=== PATIENT | male | born 1965 | race Caucasian/White ===

== ENCOUNTER 2024-10-12 13:24 | Inpatient (IN) | payer MEDICAID, OTHER ==
[~2024-10-12] VITALS: Ht 188 cm; Wt 95.8 kg
[2024-10-12 15:10] VITALS: PULSE 92; RESP 20; O2SAT 94
[2024-10-12] MEDS: DexAMETHasone SOD PHOS 10MG/1ML VIAL INJ IM ONE (15:40)
--- NOTE | 2024-10-12 15:43 | DVH ---
EXAM: XR Chest, 1 View CLINICAL INDICATION: Shortness of breath TECHNIQUE: Frontal view of the chest. COMPARISON: None FINDINGS: LUNGS AND PLEURAL SPACES: See below. HEART: Cardiomegaly with pulmonary congestion and edema. Superimposed pneumonia cannot be excluded. MEDIASTINUM: Unremarkable. Normal mediastinal contour. BONES/JOINTS: Unremarkable. No acute fracture. OTHER FINDINGS: . . IMPRESSION: Cardiomegaly with pulmonary congestion and edema. Superimposed pneumonia cannot be excluded. HS:Y
[2024-10-12] MEDS: IPRATROPIUM BROM 0.5 MG/2.5ML INH SOL NEB ONE (16:01)
[2024-10-12] MEDS: ALBUTEROL SULF 2.5 MG/0.5ML(0.5%) NEB SOLN NEB ONE (16:02)
[2024-10-12 16:08] LABS: Urine Bacteria None Seen /hpf (None Seen)
[2024-10-12 16:08] LABS: Basophils # (auto) 0 10 ^3/uL (0-0.2); Basophils % (auto) 0.3 % (0.0-2.0); Eosinophils # (auto) 0 10 ^3/uL (0-0.8); Hematocrit 40.6 % (41.0-53.0); Hemoglobin 13.6 g/dL (13.5-17.5); Lymphocytes % (auto) 7.5 % (10.0-50.0); Mean Corpuscular Hemoglobin 30.4 pg (28.0-32.0); Mean Corpuscular Hgb Conc. 33.5 g/dL (32.0-36.0); Mean Corpuscular Volume 90.8 fL (80.0-100.0); Monocytes # (auto) 1.4 10 ^3/uL (0-1.3); Monocytes % (auto) 10.2 % (0.0-12.0); Neutrophils # (auto) 11.2 10 ^3/uL (1.6-8.6); Nucleated Red Blood Cells % 0.1 %; Platelet Count (auto) 139 10^3/uL (140-450); Red Blood Cells 4.48 10^6/uL (4.5-5.90); Red Cell Distribution Width 15.4 % (11.8-14.3); White Blood Cell 13.6 10^3/uL (4.4-10.8)
[2024-10-12 16:16] LABS: Chloride 100 mmol/L (98-107); Potassium 4.7 mmol/L (3.5-5.1)
[2024-10-12 16:17] LABS: Anion Gap 10 (5-15)
[2024-10-12 16:18] LABS: Calcium 10.3 mg/dL (8.7-10.4)
[2024-10-12 16:23] LABS: BUN/Creatinine Ratio 37.2 (10.0-20.0)
[2024-10-12 16:27] LABS: Urine Blood 1+ /uL (Negative); Urine Clarity Clear (Clear); Urine Color Yellow (Yellow); Urine Mucus FEW (None Seen); Urine Protein, UAD 1+ (Negative); Urine Specific Gravity 1.022 (1.001-1.035); Urine Squamous Epithelial Cell FEW /hpf (<5); Urine Urobilinogen Normal (Negative); Urine WBC 1 /hpf (0 - 3); Urine pH 5.5 (5.0-9.0)
[2024-10-12 16:34] LABS: Blood Urea Nitrogen 32 mg/dL (9-23); Carbon Dioxide 20 mmol/L (20-31); Glucose 123 mg/dL (74-106); Lipase 63 U/L (12-53); Sodium 130 mmol/L (136-145)
--- NOTE | 2024-10-12 17:28 | ED.PDOC ---
SOB-HPI HPI Comments 59Y M presents to ED for chief complaint SOB x1week with blood in sputum. Pt denies chest pain. Pt has decreased breath sounds of LLL and appears to be in overall poor health. Pt denies h/o emphysema and COPD. No other symptoms reported. Patient had an elevated temperature at arrival. Patient was hypotensive and saturating at 97% with some mild effort at arrival. Chief Complaint: Shortness of Breath Time Seen by MD: 14:20 Reviewed notes: Nurses Notes, Medications, Allergies Information Source: Patient Mode of Arrival: Ambulatory Severity: Moderate Timing: Weeks Duration: Since onset Context: At Rest PE Risk Factors: None History of: None Prehospital treatment: None Modifying Factors: Nothing Associated Signs and Symptoms: Other If cough with SOB: Productive, Bloody Past Medical History PAST MEDICAL HISTORY: Denies Surgical History: Denies all surgeries Family History Family History: Unknown Social History Smoker: Non-Smoker Alcohol: Denies ETOH Use Drugs: Denies Drug Use Lives In: Home Constitutional: reports: fever, weakness; denies: chills, diaphoresis, fatigue, malaise, sweats, others EENTM: denies: blurred vision, double vision, ear bleeding, ear discharge, ear drainage, ear pain, ear ringing, eye pain, eye redness, hearing loss, mouth pain, mouth swelling, nasal discharge, nose bleeding, nose congestion, nose pain, photophobia, tearing, throat pain, throat swelling, voice changes, others Respiratory: reports: cough, shortness of breath; denies: hemoptysis, orthopnea, SOB at rest, SOB with excertion, stridor, wheezing, others Cardiovascular: denies: chest pain, dizzy spells, diaphoresis, Dyspnea on exertion, edema, irregular heart beat, left arm pain, lightheadedness, p alpitations, PND, syncope, others Gastrointestinal: denies: abdomen distended, abdominal pain, blood streaked bowels, constipated, diarrhea, dysphagia, difficulty swallowing, hematemesis, melena, nausea, poor appetite, poor fluid intake, rectal bleeding, rectal pain, vomiting, others Genitourinary: denies: burning, dysuria, flank pain, frequency, hematuria, incontinence, penile discharge, penile sore, pain, testicle pain, testicle swelling, urgency, others Neurological: denies: dizziness, fainting, headache, left sided numbness, left sided weakness, numbness, paresthesia, pre-existing deficit, right sided numbness, right sided weakness, seizure, speech problems, tingling, tremors, weakness, others Musculoskeletal: denies: back pain, gout, joint pain, joint swelling, muscle pain, muscle stiffness, neck pain, others Integumetry: denies: bruises, change in color, change in hair/nails, dryness, laceration, lesions, lumps, rash, wounds, others Allergic/Immunocompromised: denies: Difficulty Healing, Frequent Infections, Hives, Itching, others Hematologic/Lymphatic: denies: anemia, blood clots, easy bleeding, easy b ruising, swollen glands, others Endocrine: denies: excessive hunger, excessive sweating, excessive thirst, excessive urination, flushing, intolerance to cold, intolerance to heat, unexplained weight gain, unexplained weight loss, others Psychiatric: denies: anxiety, bipolar disorder, depression, hopeless, panic disorder, schizophrenia, sleepless, suicidal, others All Other Systems: Reviewed and Negative Physical Exam Exam Comments Patient appears to be in poor overall health. General Appearance: Moderate Distress (Moderate distress due to shortness a breath and chest congestion concerns.), Normal HEENT: Normal ENT Inspection, Pharynx Normal, TMs Normal Neck: Full Range of Motion, Non-Tender, Normal, Normal Inspection Respiratory: Chest Non-Tender, Decreased Breath Sounds (LLL) Cardiovascular: No Edema, No JVD, No Murmur, No Gallop, Normal Peripheral Pulses, Regular Rate/Rhythm Breast Exam: Deferred Gastrointestinal: No Organomegaly, Non Tender, No Pulsatile Mass, Normal Bowel Sounds, Soft Genitalia: Deferred Pelvic: Deferred Rectal: Deferred Extremities: No calf tenderness, Normal capillary refill, Normal inspection, Normal range of motion, Non-tender, No pedal edema Musculoskeletal : Apperance: Normal Neurologic: Alert, No Motor Deficits, Normal Affect, Normal Mood, No Sensory Deficits Cerebellar Function: Normal Reflexes: Normal Skin: Dry, Normal Color, Warm Lymphatic: No Adenopathy Was a procedure done? Was a procedure done?: No Differential Dx Differential Diagnosis: Asthma, Bronchitis, COPD, Pneumonia, Respiratory Distress, URI, Other (Sepsis, CHF exacerbation, electrolyte abnormality) X-Ray, Labs, Meds, VS Vital Signs Date Time Temp Pulse Resp B/P (MAP) Pulse Ox O2 Delivery O2 Flow Rate FiO2 10/12/24 16:02 18 95 Room Air* 0 21 10/12/24 15:40 98.7 93 16 103/68 (80) 95 98.7 10/12/24 15:40 93 16 95 Room Air 10/12/24 15:10 92 20 94 Room Air* 0 21 10/12/24 15:04 9 18 100/66 (77) 94 10/12/24 13:40 100.1 96 20 93/65 (74) 97 10/12/24 13:40 20 Room Air* 0 21 Lab Test 10/12/24 15:47 10/12/24 15:39 Range/Units White Blood Count 13.6 H 4.4-10.8 10^3/uL Red Blood Count 4.48 L 4.5-5.90 10^6/uL Hemoglobin 13.6 13.5-17.5 g/dL Hematocrit 40.6 L 41.0-53.0 % Mean Corpuscular Volume 90.8 80.0-100.0 fL Mean Corpuscular Hemoglobin 30.4 28.0-32.0 pg Mean Corpuscular Hemoglobin Concent 33.5 32.0-36.0 g/dL Red Cell Distribution Width 15.4 H 11.8-14.3 % Platelet Count 139 L 140-450 10^3/uL Mean Platelet Volume 9.0 6.9-10.8 fL Neutrophils (%) (Auto) 82.0 H 37.0-80.0 % Lymphocytes (%) (Auto) 7.5 L 10.0-50.0 % Monocytes (%) (Auto) 10.2 0.0-12.0 % Eosinophils (%) (Auto) 0.0 0.0-7.0 % Basophils (%) (Auto) 0.3 0.0-2.0 % Neutrophils # (Auto) 11.2 H 1.6-8.6 10 ^3/uL Lymphocytes # (Auto) 1.0 0.4-5.4 10 ^3/uL Monocytes # (Auto) 1.4 H 0-1.3 10 ^3/uL Eosinophils # (Auto) 0 0-0.8 10 ^3/uL Basophils # (Auto) 0 0-0.2 10 ^3/uL Nucleated Red Blood Cells 0.1 % Sodium Level 130 L 136-145 mmol/L Potassium Level 4.7 3.5-5.1 mmol/L Chloride Level 100 98-107 mmol/L Carbon Dioxide Level 20 20-31 mmol/L Anion Gap 10 5-15 Blood Urea Nitrogen 32 H 9-23 mg/dL Creatinine 0.86 0.700-1.30 mg/dL Glomerular Filtration Rate Calc 99 >90 mL/min BUN/Creatinine Ratio 37.2 H 10.0-20.0 Serum Glucose 123 H 74-106 mg/dL Calcium Level 10.3 8.7-10.4 mg/dL B-Type Natriuretic Peptide 1909.28 0-100 pg/mL Lipase 63 H 12-53 U/L Urine Color Yellow Yellow Urine Clarity Clear Clear Urine pH 5.5 5.0-9.0 Urine Specific [place] 1.022 1.001-1.035 Urine Protein 1+ H Negative Urine Ketones Trace Negative Urine Blood 1+ H Negative /uL Urine Nitrite Negative Negative Urine Bilirubin Negative Negative Urine Urobilinogen Normal Negative mg/dL Urine Leukocyte Esterase Negative Negative /uL Urine RBC 1 0 - 3 /hpf Urine WBC 1 0 - 3 /hpf Urine Squamous Epithelial Cells Few <5 /hpf Urine Bacteria None seen None Seen /hpf Urine Mucus Few None Seen Urine Glucose Normal Normal mg/dL Current Medications Medications (Trade) Dose Ordered Sig/Anthony Route Start Time Stop Time Status Last Admin Albuterol (Ventolin Medneb) 2.5 mg ONCE ONCE NEB 10/12/24 15:30 10/12/24 15:31 DC 10/12/24 16:02 Ipratropium [place] (Atrovent Medneb) 0.5 mg ONCE ONCE NEB 10/12/24 15:30 10/12/24 15:31 DC 10/12/24 16:01 Dexamethasone Sodium Phosphate (Decadron Injection) 10 mg ONCE ONCE IM 10/12/24 15:30 10/12/24 15:31 DC 10/12/24 15:[address] [address] Ph: [phone] DIAGNOSTIC IMAGING Diagnostic Imaging Report : [id number] Signed PATIENT: RADHA HESS ACCT: [id number] UNIT: [id number] : 1965 LOC: ER ROOM / BED: / AGE / SEX: 59 / M ADM STATUS: REG ER SERVICE 1521 ORDERING PHYSICIAN: PATRICIA KHAN PAC PROCEDURE(s): CXRP - CHEST PORTABLE REASON: Shortness of breath ORDER NUMBER(s): [id number], ACCESSION NUMBER(s): [id number] EXAM: XR Chest, 1 View CLINICAL INDICATION: Shortness of breath TECHNIQUE: Frontal view of the chest. COMPARISON: None FINDINGS: LUNGS AND PLEURAL SPACES: See below. HEART: Cardiomegaly with pulmonary congestion and edema. Superimposed pneumonia cannot be excluded. MEDIASTINUM: Unremarkable. Normal mediastinal contour. BONES/JOINTS: Unremarkable. No acute fracture. OTHER FINDINGS: . . IMPRESSION: Cardiomegaly with pulmonary congestion and edema. Superimposed pneumonia cannot be excluded. HS:Y ATED BY: PATRICIA RIDER MD DICTATED DATE/TIME: 10/12/241540 SIGNED BY: PATRICIA RIDER MD SIGNED DATE/TIME: 10/12/241540 CC: X-Ray, Labs, Meds, VS Comment All studies performed the ED were reviewed by me personally. Laboratories studies revealed a mild leukocytosis, thrombocytopenia, hyponatremia, elevated lipase as well as a significant elevated BNP indicative of a probable acute CHF exacerbation. Imaging studies of the chest revealed cardiomegaly with pulmonary congestion and edema possible superimposed pneumonia. Patient will be admitted for IV antibiotics to address the pneumonia concerns as well as Lasix to reduce the pulmonary vascular congestion. Time of 1ST Reevaluation: 17:38 Reevaluation 1ST: Improved Consultation: PCP, Cardiology Patient Education/Counseling: Diagnosis, Treatment Family Education/Counseling: Diagnosis, Treatment, No Family Present Departure 1 Departure Time of Disposition: 17:39 Impression: Primary Impression: Pneumonia Additional Impressions: Acute exacerbation of CHF (congestive heart failure) Thrombocytopenia Hyponatremia Elevated lipase Disposition: ADMITTED INPATIENT Condition: Stable Discharged With: Self, Friend Critical Care Note Critical Care Time?: No Stability Stability form required: No Heart Score Heart Score: Heart Score Response (Comments) Value History N/A 0 EKG N/A 0 Age N/A 0 Risk Factors N/A 0 Troponin N/A 0 Total 0 I personally scribed for PATRICIA KHAN PAC ([email or web address]) on 10/12/24 at 17:28. Electronically submitted by Chinyere Marmolejo ([facility]). I personally scribed for PATRICIA KHAN [facility] on 10/12/24 at 17:29. Electronically [facility] by [facility] ([facility] PATRICIA KHAN PAC Oct 12, 2024 17:28
[2024-10-12] MEDS ORDERED: FUROSEMIDE 100 MG/10ML VIAL IV ONE (17:45)
[2024-10-12] MEDS: SODIUM CHLORIDE 0.9% 1,000 ML IV ONE (18:07)
[2024-10-12] MEDS: AZITHROMYCIN 500MG/ 250ML 250 ML IV ONE (18:21)
[2024-10-12] MEDS: FUROSEMIDE 40 MG/4 ML VIAL IV ONE (18:37)
[2024-10-12] MEDS ORDERED: MELATONIN 5 MG TAB PO PRN (20:00)
[2024-10-12] MEDS ORDERED: MORPHINE SULFATE INJ 2 MG/ml SYRG IV PRN (20:00)
[2024-10-12] MEDS ORDERED: ONDANSETRON HCL 4 MG/2 ML VIAL IV PRN (20:00)
[2024-10-12] MEDS ORDERED: NITROGLYCERIN 0.4 MG SL TAB SL PRN (20:00)
[2024-10-12 20:13] VITALS: PULSE 79; RESP 16; O2SAT 94
[2024-10-12] MEDS ORDERED: SENNA 8.6 MG TAB PO PRN (20:15)
[2024-10-12] MEDS ORDERED: ALBUMIN 25% 100 ML IV ONE (20:15)
[2024-10-12 20:23] VITALS: BP 107/68; PULSE 89; RESP 20; O2SAT 94
[2024-10-12] MEDS: ALBUMIN 25% 50 ML IV ONE (20:41)
[2024-10-12 21:55] LABS: COVID19 ANTIGEN SOFIA FIA NEGATIVE (NEGATIVE); Rapid Influenza A Negative (Negative); Rapid Influenza B Negative (Negative)
[2024-10-12] MEDS: FAMOTIDINE 20 MG TAB PO SCH (22:43)
[2024-10-12] MEDS: DOXYCYCLINE 100MG/100ML 100 ML IV SCH (22:44)
[2024-10-13] VITALS (19 sets, daily range): BP systolic 89–105; BP diastolic 59–77; PULSE 74–105; RESP 16–20; TEMP 97.5–97.9; O2SAT 94–100
--- NOTE | 2024-10-13 00:19 | DVHHP2 ---
Admitting Diagnosis: New onset CHF, Pneumonia ? History of Present Illness History Source: Patient Exam Limitations: No limitations HPI Mr. Jorge Weinstein is a 59 yo male with no reported past medical history who presents with a chief complaint of shortness of breath with frothy bloody sputum. Patient was found to have BNP 1,809 and CXR resulted Cardiomegaly with pulmonary congestion and edema. Superimposed pneumonia cannot be excluded. Patient reports he has a past history of childhood aortic valve stenosis however has not seen a cardiologists. Patient reports chest pain when he coughs. Patient denies fevers, chills, nausea, vomiting. Patient denies any history of hypertension, CHF, COPD. Past Medical History Cardiac: No pertinent Hx Pulmonary: No pertinent Hx Central Nervous System: No pertinent Hx GI: No pertinent Hx Hemotology/Oncology: No pertinent Hx Hepatobiliary: No pertinent Hx Psychiatric: No pertinent Hx Musculoskeletal: No pertinent Hx Rheumotologic: No pertinent Hx Infectious Disease: No peritnent Hx ENT: No pertinent Hx Renal/: No pertinent Hx Endocrine: No pertinent Hx Dermatology: No pertinent Hx Others childhood diagnosis of aortic valve stenosis Smoker: No Hx (Negative) Alocohol: None Drugs: None Domestic Violence: Neg Review of Systems Constitutional: No symptom reported Ears, Nose, & Throat: No symptom reported Eyes: No symptom reported Pulmonary/Respiratory: Dyspnea, Cough, Pleuritic Chest Pain Cardiovascular: No symptom reported Gastrointestinal: No symptom reported Genitourinary: No symptom reported Musculoskeletal: No symptom reported Skin: No symptom reported Psychiatric: No symptom reported Endocrine: No symptom reported Hemotologic/Lymphatic: No symptom reported H&P Exam Vital Signs Vital Signs Date Time Temp Pulse Resp B/P (MAP) Pulse Ox O2 Delivery O2 Flow Rate FiO2 10/12/24 22:18 98.1 85 12 102/67 (79) 96 98.1 10/12/24 20:23 0.0 21 10/12/24 20:13 Room Air* General Appeara: Well developed, Well nourished, Normal Appearance Head Exam: Normal inspection Neck Exam: Normal inspection, Non-tender, Normal alignment Eye Exam: bilateral eye Normal inspection, bilateral eye PERRL, bilateral eye EOMI Ear Exam: bilateral ear Auricle normal, bilateral ear Canal normal Nasal Exam: Normal inspection Mouth: Normal Inspection Pulmonary/Respiratory: Normal inspection, Normal breath sounds, Chest non- tender, Lungs clear Cardiovascular/Chest: Normal inspection, Regular rate, Normal Rhythm Peripheral Pulses: 2+ dorsalis pedis (R), 2+ dorsalis pedis (L), 2+ Radial (R), 2+ Radial (L) Abdominal Exam: Normal bowel sounds, Soft, No tenderness Rectal Exam: Deferred Back Exam: Normal inspection Male Genital Exam: Not done Tendon/ Neuro: Normal sensation, Normal motor function [employer] Exam: Normal hearing, Normal speech, PERRL Motor/Sensory: Normal sensory function, Normal motor function Neuro/Mental St: Alert, Oriented Appearance: Appropriate appearance, Appropriate insight Eye contact/ Speech: Cooperative, Good eye contact, Normal speech Thoughts/Psych: Normal thought pattern Skin Exam: Normal inspection, Normal color, Warm/dry Labs/Xrays Labs Test 10/12/24 20:52 10/12/24 20:10 10/12/24 15:47 10/12/24 15:39 Range/Units Influenza Type A Antigen Negative Negative Influenza Type B Antigen Negative Negative SARS-CoV-2 Antigen (Rapid) Negative NEGATIVE Magnesium Level 2.1 1.6-2.6 mg/dL Troponin I High Sensitivity 41 </=54 ng/L White Blood Count 13.6 H 4.4-10.8 10^3/uL Red Blood Count 4.48 L 4.5-5.90 10^6/uL Hemoglobin 13.6 13.5-17.5 g/dL Hematocrit 40.6 L 41.0-53.0 % Mean Corpuscular Volume 90.8 80.0-100.0 fL Mean Corpuscular Hemoglobin 30.4 28.0-32.0 pg Mean Corpuscular Hemoglobin Concent 33.5 32.0-36.0 g/dL Red Cell Distribution Width 15.4 H 11.8-14.3 % Platelet Count 139 L 140-450 10^3/uL Mean Platelet Volume 9.0 6.9-10.8 fL Neutrophils (%) (Auto) 82.0 H 37.0-80.0 % Lymphocytes (%) (Auto) 7.5 L 10.0-50.0 % Monocytes (%) (Auto) 10.2 0.0-12.0 % Eosinophils (%) (Auto) 0.0 0.0-7.0 % Basophils (%) (Auto) 0.3 0.0-2.0 % Neutrophils # (Auto) 11.2 H 1.6-8.6 10 ^3/uL Lymphocytes # (Auto) 1.0 0.4-5.4 10 ^3/uL Monocytes # (Auto) 1.4 H 0-1.3 10 ^3/uL Eosinophils # (Auto) 0 0-0.8 10 ^3/uL Basophils # (Auto) 0 0-0.2 10 ^3/uL Nucleated Red Blood Cells 0.1 % Sodium Level 130 L 136-145 mmol/L Potassium Level 4.7 3.5-5.1 mmol/L Chloride Level 100 98-107 mmol/L Carbon Dioxide Level 20 20-31 mmol/L Anion Gap 10 5-15 Blood Urea Nitrogen 32 H 9-23 mg/dL Creatinine 0.86 0.700-1.30 mg/dL Glomerular Filtration Rate Calc 99 >90 mL/min BUN/Creatinine Ratio 37.2 H 10.0-20.0 Serum Glucose 123 H 74-106 mg/dL Calcium Level 10.3 8.7-10.4 mg/dL B-Type Natriuretic Peptide 1909.28 0-100 pg/mL Lipase 63 H 12-53 U/L Urine Color Yellow Yellow Urine Clarity Clear Clear Urine pH 5.5 5.0-9.0 Urine Specific [place] 1.022 1.001-1.035 Urine Protein 1+ H Negative Urine Ketones Trace Negative Urine Blood 1+ H Negative /uL Urine Nitrite Negative Negative Urine Bilirubin Negative Negative Urine Urobilinogen Normal Negative mg/dL Urine Leukocyte Esterase Negative Negative /uL Urine RBC 1 0 - 3 /hpf Urine WBC 1 0 - 3 /hpf Urine Squamous Epithelial Cells Few <5 /hpf Urine Bacteria None seen None Seen /hpf Urine Mucus Few None Seen Urine Glucose Normal Normal mg/dL Assessment/Plan Problem List: (1) Acute exacerbation of CHF (congestive heart failure) (2) Pneumonia (3) Thrombocytopenia Plan 59 yo male with no reported past medical history presents to the hospital with shortness of breath , cough with blood in sputum. Patient found to have 1. acute CHF exacerbation , new onset 2. Pneumonia ? 3. Acute hyponatremia 4. Thrombocytopenia PLAN: Admit Telemetry unit Cardiology consultation, 2D echocardiogram, Fluid Restriction, Strict I&O's IV diuresis Furosemide Empiric IV antibiotic Duo Neb Treatments Monitor CBC, BMP Incentive spirometry Discussed all above with patient who verbalizes agreement and understanding of care plan. All questions were answered. Discussed assessment and care plan with supervising MD. Plan discussed with: Patient, Other Code Visit Code Visit Total Time (mins): 45 Additional Comments Additional Comments Additional Comments 59-year-old male with a known significant past medical history initially admitted to the hospital with the increasing shortness a breath and frothy pinkish sputum found to have 1. Acute congestive heart failure exacerbation unspecified 2. Shortness of breath 3. Bilateral leg edema 4. Mild leukocytosis 5. Thrombocytopenia 6. Hyponatremia -IV diuretics, 2D echo cardiology consultation -strict I&Os WANDA CORREIA Oct 13, 2024 00:19 MALLORY LIGHT MD Oct 13, 2024 16:58
[2024-10-13] MEDS: IPRATROPIUM BROM 0.5 MG/2.5ML INH SOL NEB SCH (00:38)
[2024-10-13] MEDS: FUROSEMIDE 40 MG/4 ML VIAL IV SCH (05:34)
[2024-10-13 09:30] LABS: Basophils # (auto) 0.2 10 ^3/uL (0-0.2); Basophils % (auto) 1.7 % (0.0-2.0); Eosinophils # (auto) 0 10 ^3/uL (0-0.8); Hematocrit 38.2 % (41.0-53.0); Hemoglobin 12.7 g/dL (13.5-17.5); Lymphocytes # (auto) 0.5 10 ^3/uL (0.4-5.4); Lymphocytes % (auto) 3.4 % (10.0-50.0); Mean Corpuscular Hgb Conc. 33.3 g/dL (32.0-36.0); Monocytes # (auto) 0.9 10 ^3/uL (0-1.3); Monocytes % (auto) 6.6 % (0.0-12.0); Neutrophils # (auto) 12.3 10 ^3/uL (1.6-8.6); Neutrophils % (auto) 88.3 % (37.0-80.0); Nucleated Red Blood Cells % 0.1 %; Platelet Count (auto) 137 10^3/uL (140-450); Red Blood Cells 4.24 10^6/uL (4.5-5.90); Red Cell Distribution Width 15.5 % (11.8-14.3); White Blood Cell 13.9 10^3/uL (4.4-10.8)
[2024-10-13] MEDS: ENOXAPARIN SOD 40 MG/0.4 ML SYRINGE SC SCH (09:38)
[2024-10-13 09:40] LABS: Chloride 99 mmol/L (98-107); Potassium 4.6 mmol/L (3.5-5.1)
[2024-10-13 09:41] LABS: Anion Gap 8 (5-15); Calcium 9.9 mg/dL (8.7-10.4); Carbon Dioxide 21 mmol/L (20-31)
[2024-10-13 09:46] LABS: BUN/Creatinine Ratio 34.5 (10.0-20.0)
[2024-10-13 10:31] LABS: Blood Urea Nitrogen 30 mg/dL (9-23); Glucose 243 mg/dL (74-106); Sodium 128 mmol/L (136-145)
[2024-10-13] MEDS: HYDROcodone-ACET 5/325MG TAB PO PRN (21:40)
[2024-10-14] VITALS (18 sets, daily range): BP systolic 90–100; BP diastolic 59–70; PULSE 80–95; RESP 16–21; TEMP 97.4–98.4; O2SAT 93–100
[2024-10-14] MEDS: ACETAMINOPHEN 325 MG TAB PO PRN (05:02)
[2024-10-14 06:04] LABS: Basophils # (auto) 0 10 ^3/uL (0-0.2); Basophils % (auto) 0.1 % (0.0-2.0); Eosinophils # (auto) 0 10 ^3/uL (0-0.8); Hematocrit 40.8 % (41.0-53.0); Hemoglobin 13.5 g/dL (13.5-17.5); Lymphocytes # (auto) 0.9 10 ^3/uL (0.4-5.4); Lymphocytes % (auto) 4.8 % (10.0-50.0); Mean Corpuscular Hemoglobin 29.9 pg (28.0-32.0); Mean Corpuscular Hgb Conc. 33.1 g/dL (32.0-36.0); Mean Corpuscular Volume 90.3 fL (80.0-100.0); Monocytes # (auto) 1.3 10 ^3/uL (0-1.3); Monocytes % (auto) 7.2 % (0.0-12.0); Neutrophils # (auto) 15.7 10 ^3/uL (1.6-8.6); Neutrophils % (auto) 87.9 % (37.0-80.0); Nucleated Red Blood Cells % 0.2 %; Platelet Count (auto) 158 10^3/uL (140-450); Red Blood Cells 4.52 10^6/uL (4.5-5.90); Red Cell Distribution Width 16.1 % (11.8-14.3); White Blood Cell 17.9 10^3/uL (4.4-10.8)
[2024-10-14 06:17] LABS: Chloride 98 mmol/L (98-107); Potassium 4.4 mmol/L (3.5-5.1)
[2024-10-14 06:18] LABS: Anion Gap 7 (5-15); Carbon Dioxide 27 mmol/L (20-31)
[2024-10-14 06:40] LABS: BUN/Creatinine Ratio 31.9 (10.0-20.0); Blood Urea Nitrogen 30 mg/dL (9-23); Calcium 10.9 mg/dL (8.7-10.4); Glucose 164 mg/dL (74-106); Sodium 132 mmol/L (136-145)
--- NOTE | 2024-10-14 15:10 | DVHPN2 ---
Subjective Overnight events noted. Patient is still complaining of shortness of breath on minimal exertion. Reviewed: Care Plan Changes from previous H/P or p: No Changes Objective Vitals Vital Signs Date Time Temp Pulse Resp B/P (MAP) Pulse Ox O2 Delivery O2 Flow Rate FiO2 10/14/24 13:00 98.4 87 21 97/64 (75) 96 98.4 10/14/24 12:02 Room Air 0.0 10/14/24 12:02 21 Intake/Output Intake and Output 10/14/24 07:00 Intake Total 1184 ml Output Total 300 ml Balance 884 ml Intake Oral 984 ml IV Total 200 ml Output Urine Total 300 ml # Voids 3 # Bowel Movements 3 Exam HEENT pupils are reactive Neck is supple CV is S1-S2 regular rate and rhythm Respiratory diminished breath sounds bilateral lung bases GI positive bowel sounds Extremity 1+ pitting edema 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 Medications Current Medications Medications Dose Ordered Sig/Anthony Route Start Time Stop Time Status Last Admin Dose Admin Nitroglycerin 0.4 mg Q5MINP PRN SL 10/12/24 20:00 Morphine Sulfate 2 mg Q30M PRN IV 10/12/24 20:00 Ondansetron HCl 4 mg Q6HPRN PRN IV 10/12/24 20:00 Melatonin 5 mg ONCE@2200 PRN PO 10/12/24 20:00 Enoxaparin Sodium 40 mg DAILY SC 10/13/24 10:00 10/14/24 11:42 40 MG Famotidine 20 mg BID PO 10/12/24 22:00 10/14/24 11:42 20 MG Acetaminophen 650 mg Q6HPRN PRN PO 10/12/24 20:00 10/14/24 05:02 650 MG Acetaminophen/ Hydrocodone Bitart 1 tab Q6HPRN PRN PO 10/12/24 20:00 10/13/24 21:40 1 TAB Doxycycline Hyclate 100 ml @ 50 mls/hr BID IV 10/12/24 22:00 10/14/24 11:41 50 MLS/HR Ipratropium [place] 0.5 mg Q6HR NEB 10/13/24 00:00 10/14/24 12:02 0.5 MG Furosemide 40 mg BIDD IV 10/13/24 06:00 10/14/24 06:17 40 MG Sennosides 8.6 mg BIDP PRN PO 10/12/24 20:15 Laboratory Results Laboratory Tests 10/14/24 05:00 Chemistry Test 10/14/24 05:00 Calcium Level 10.9 mg/dL (8.7-10.4) H Urinalysis Test 10/12/24 15:39 Urine Color Yellow (Yellow) Urine Clarity Clear (Clear) Urine pH 5.5 (5.0-9.0) Urine Specific [place] 1.022 (1.001-1.035) Urine Protein 1+ (Negative) H Urine Ketones Trace (Negative) Urine Blood 1+ /uL (Negative) H Urine Nitrite Negative (Negative) Urine Bilirubin Negative (Negative) Urine Urobilinogen Normal mg/dL (Negative) Urine Leukocyte Esterase Negative /uL (Negative) Urine RBC 1 /hpf (0 - 3) Urine WBC 1 /hpf (0 - 3) Urine Squamous Epithelial Cells Few /hpf (<5) Urine Bacteria None seen /hpf (None Seen) Urine Mucus Few (None Seen) Urine Glucose Normal mg/dL (Normal) Assessment/Plan Assessment/Plan 59-year-old male with a known significant past medical history initially admitted to the hospital with the increasing shortness a breath and frothy pinkish sputum found to have 1. Acute congestive heart failure exacerbation unspecified 2. Shortness of breath 3. Bilateral leg edema 4. Mild leukocytosis 5. Thrombocytopenia 6. Hyponatremia 7. Possible suspected pneumonia -continue IV diuretics, cough follow up 2D echo and cardiology consultation, add azithromycin -repeat labs CBC and BMP. Plan discussed with: Patient Date of Service: Oct 14, 2024 Billing Provider: MALLORY LIGHT MD Common Visit Codes: NOT BILLABLE MALLORY LIGHT MD Oct 14, 2024 15:10
[2024-10-14] MEDS: AZITHROMYCIN 500MG/ 250ML 250 ML IV ONE (16:33)
--- NOTE | 2024-10-14 18:27 | MEDREC ---
[facility] ASP Intervention Section I [facility] ASP Intervention: Duplication of therapy (PLEASE CONSIDER D/C DOXYCYCLINE AND ADDING CEFTRIAXONE TO AZITHROMYCIN FOR CAP) KAILEE HAMILTON PHARMACIST Oct 14, 2024 18:27
[2024-10-15] VITALS (13 sets, daily range): BP systolic 90–103; BP diastolic 63–72; PULSE 89–98; RESP 16–21; TEMP 97.8–99; O2SAT 92–100
--- NOTE | 2024-10-15 03:24 | DVHINCON2 ---
DATE OF CONSULTATION: 10/13/2024 REFERRING PHYSICIAN: . CONSULTING PHYSICIAN: Dr. Maldonado. INDICATION: Shortness of breath. HISTORY OF PRESENT ILLNESS: The patient is a 59-year-old male with history of valvular heart disease presented to the hospital with complaints of worsening shortness of breath and lower extremity edema. The patient is admitted with diagnosis of decompensated heart failure. Currently on IV Lasix with some improvement in symptoms. The patient states that it has been years since he has been to a physician. The patient was told that he has valvular heart disease, did not know the details. PAST MEDICAL HISTORY: Valvular heart disease. MEDICATIONS: Per med rec. ALLERGIES: No known drug allergies. PHYSICAL EXAMINATION: GENERAL: Alert and awake, in no form of cardiopulmonary distress. VITAL SIGNS: Blood pressure 96/69, pulse 80 per minute, saturation 92%. HEENT: No carotid bruits. No jugular venous distention. CHEST: Bilateral air entry. Scattered wheeze and rhonchi. CARDIOVASCULAR: Precordial and carotid pulses palpable. Normal S1, S2. There is a grade 3/6 crescendo-decrescendo murmur, best heard over the aortic area. EXTREMITIES: Bilateral edema. DIAGNOSTIC DATA: BNP is elevated at 1909. Sodium 128, potassium 4.6, creatinine 0.8. White count 13, hemoglobin 12, and platelet is 137. ASSESSMENT: * Decompensated heart failure. * Severe aortic stenosis by echo. * Cardiomyopathy, likely secondary to underlying valvular heart disease. * Hyponatremia. * Tobacco use. * Chronic obstructive pulmonary disease. RECOMMENDATIONS: * Continue cautious diuresis. * Restrict salt and fluid intake. * Monitor sodium closely. * We will review echo. * The patient would need assessment for TAVR as an outpatient, have advised the patient to follow up with his primary care and myself in 1-2 weeks upon discharge. * Continue telemetry monitoring. Thank you for allowing me to participate in the care of this patient. MD HOLDEN Jimenez/MALU/PATO TID: [id number] RECEIPT: [id number]
[2024-10-15 06:09] LABS: Basophils # (auto) 0 10 ^3/uL (0-0.2); Basophils % (auto) 0.1 % (0.0-2.0); Eosinophils # (auto) 0 10 ^3/uL (0-0.8); Hematocrit 36.6 % (41.0-53.0); Hemoglobin 12.2 g/dL (13.5-17.5); Lymphocytes # (auto) 0.8 10 ^3/uL (0.4-5.4); Mean Corpuscular Hemoglobin 29.8 pg (28.0-32.0); Mean Corpuscular Hgb Conc. 33.4 g/dL (32.0-36.0); Mean Corpuscular Volume 89.2 fL (80.0-100.0); Monocytes # (auto) 1.5 10 ^3/uL (0-1.3); Monocytes % (auto) 9.4 % (0.0-12.0); Neutrophils # (auto) 13.5 10 ^3/uL (1.6-8.6); Neutrophils % (auto) 85.5 % (37.0-80.0); Nucleated Red Blood Cells % 0.1 %; Platelet Count (auto) 156 10^3/uL (140-450); Red Cell Distribution Width 15.7 % (11.8-14.3); White Blood Cell 15.7 10^3/uL (4.4-10.8)
[2024-10-15 06:25] LABS: Chloride 100 mmol/L (98-107); Potassium 3.9 mmol/L (3.5-5.1)
[2024-10-15 06:26] LABS: Anion Gap 9 (5-15); Carbon Dioxide 24 mmol/L (20-31)
[2024-10-15 06:27] LABS: Calcium 10.4 mg/dL (8.7-10.4)
[2024-10-15 06:30] LABS: Sodium 133 mmol/L (136-145)
[2024-10-15 06:32] LABS: BUN/Creatinine Ratio 34.4 (10.0-20.0); Magnesium 2.2 mg/dL (1.6-2.6)
[2024-10-15 06:35] LABS: Blood Urea Nitrogen 31 mg/dL (9-23); Glucose 128 mg/dL (74-106)
[2024-10-15] MEDS: AZITHROMYCIN 500MG/ 250ML 250 ML IV SCH (10:00)
[2024-10-15] MEDS ORDERED: FURO1TAB31 PO (16:16)
[2024-10-15] MEDS ORDERED: DOXY-286 PO (16:16)
--- NOTE | 2024-10-15 16:17 | DVHDS2 ---
Discharge Summary Date of Admission Oct 12, 2024 at 19:56 Date of Discharge: Oct 15, 2024 Labs/Diagnostic Data: Laboratory Results Test 10/15/24 04:55 10/12/24 20:52 10/12/24 20:10 10/12/24 15:47 White Blood Count 15.7 10^3/uL (4.4-10.8) Red Blood Count 4.10 10^6/uL (4.5-5.90) Hemoglobin 12.2 g/dL (13.5-17.5) Hematocrit 36.6 % (41.0-53.0) Mean Corpuscular Volume 89.2 fL (80.0-100.0) Mean Corpuscular Hemoglobin 29.8 pg (28.0-32.0) Mean Corpuscular Hemoglobin Concent 33.4 g/dL (32.0-36.0) Red Cell Distribution Width 15.7 % (11.8-14.3) Platelet Count 156 10^3/uL (140-450) Mean Platelet Volume 10.0 fL (6.9-10.8) Neutrophils (%) (Auto) 85.5 % (37.0-80.0) Lymphocytes (%) (Auto) 5.0 % (10.0-50.0) Monocytes (%) (Auto) 9.4 % (0.0-12.0) Eosinophils (%) (Auto) 0.0 % (0.0-7.0) Basophils (%) (Auto) 0.1 % (0.0-2.0) Neutrophils # (Auto) 13.5 10 ^3/uL (1.6-8.6) Lymphocytes # (Auto) 0.8 10 ^3/uL (0.4-5.4) Monocytes # (Auto) 1.5 10 ^3/uL (0-1.3) Eosinophils # (Auto) 0 10 ^3/uL (0-0.8) Basophils # (Auto) 0 10 ^3/uL (0-0.2) Nucleated Red Blood Cells 0.1 % Sodium Level 133 mmol/L (136-145) Potassium Level 3.9 mmol/L (3.5-5.1) Chloride Level 100 mmol/L (98-107) Carbon Dioxide Level 24 mmol/L (20-31) Anion Gap 9 (5-15) Blood Urea Nitrogen 31 mg/dL (9-23) Creatinine 0.90 mg/dL (0.700-1.30) Glomerular Filtration Rate Calc 98 mL/min (>90) BUN/Creatinine Ratio 34.4 (10.0-20.0) Serum Glucose 128 mg/dL (74-106) Calcium Level 10.4 mg/dL (8.7-10.4) Magnesium Level 2.2 mg/dL (1.6-2.6) Influenza Type A Antigen Negative (Negative) Influenza Type B Antigen Negative (Negative) SARS-CoV-2 Antigen (Rapid) Negative (NEGATIVE) Troponin I High Sensitivity 41 ng/L (</=54) B-Type Natriuretic Peptide 1909.28 pg/mL (0-100) Lipase 63 U/L (12-53) Test 10/12/24 15:39 Urine Color Yellow (Yellow) Urine Clarity Clear (Clear) Urine pH 5.5 (5.0-9.0) Urine Specific [place] 1.022 (1.001-1.035) Urine Protein 1+ (Negative) Urine Ketones Trace (Negative) Urine Blood 1+ /uL (Negative) Urine Nitrite Negative (Negative) Urine Bilirubin Negative (Negative) Urine Urobilinogen Normal mg/dL (Negative) Urine Leukocyte Esterase Negative /uL (Negative) Urine RBC 1 /hpf (0 - 3) Urine WBC 1 /hpf (0 - 3) Urine Squamous Epithelial Cells Few /hpf (<5) Urine Bacteria None seen /hpf (None Seen) Urine Mucus Few (None Seen) Urine Glucose Normal mg/dL (Normal) Other Laboratory Tests 10/15/24 04:55 Brief Hx & Hospital Course: 59-year-old male with a known significant past medical history initially admitted to the hospital with the increasing shortness a breath and frothy pinkish sputum found to have CHF exacerbation. Patient was given IV diuretics. 2D echo shows evidence of severe aortic stenosis. Patient was currently on room air. Cardiology cleared the patient to be discharged. Patient was being discharged under stable condition. As per Cardiology patient was needs TAVR as an outpatient. Condition at Discharge: Stable Final Diagnosis/Problems List 59-year-old male with a known significant past medical history initially admitted to the hospital with the increasing shortness a breath and frothy pinkish sputum found to have 1. Acute congestive heart failure exacerbation unspecified 2. Shortness of breath 3. Bilateral leg edema 4. Mild leukocytosis 5. Thrombocytopenia 6. Hyponatremia 7. Possible suspected pneumonia Discharge Disposition: Home SNF Discharge Will this Physician continue t: No Discharge Instruct/Medications Diet: Cardiac 2g Na,low cholest Activity: No Restrictions, As Tolerated Follow Up/Referral: Follow up with the PCP in one week with a repeat CBC to make sure WBC count is normal Follow up with Dr. Carmichael in one week for severe aortic stenosis. Medications: Lasix, doxycycline Discharge Statement: "Patient was advised to return to the ER or call 911 if any headaches, dizziness, shortness of breath, chest pain, abdominal pain, bleeding, fevers, or worsening of medical condition. Patient was counseled about treatment plan, medications, possible side effects, patientverbalized understanding. All questions were answered to the best of my ability. This discharge took greater then 30 minutes in planning, reviewing documentation, counseling the patient, and discussing with other team members." ASSESSMENT ASSESSMENT Assessment 59-year-old male with a known significant past medical history initially admitted to the hospital with the increasing shortness a breath and frothy pinkish sputum found to have 1. Acute congestive heart failure exacerbation unspecified 2. Shortness of breath 3. Bilateral leg edema 4. Mild leukocytosis 5. Thrombocytopenia 6. Hyponatremia 7. Possible suspected pneumonia Date of Service: Oct 15, 2024 Billing Provider: MALLORY LIGHT MD Common Visit Codes: NOT BILLABLE MALLORY LIGHT MD Oct 15, 2024 16:17
== END 2024-10-15 18:15 | disposition home or self-care (01) | DRG 194 ==
LOC: ER 13:24 → TELE 19:56 → TELE-WESTW 10-13 02:11
PROVIDERS: ADMIT Internal Medicine; ATTEND Internal Medicine
DX: I50.9 Heart failure, unspecified (principal); D69.6 Thrombocytopenia, unspecified; J18.9 Pneumonia, unspecified organism; I42.9 Cardiomyopathy, unspecified; E87.1 Hypo-osmolality and hyponatremia; J44.0 Chronic obstructive pulmonary disease with (acute) lower respiratory infection; I35.0 Nonrheumatic aortic (valve) stenosis; Z20.822 Contact with and (suspected) exposure to COVID-19; Z87.891 Personal history of nicotine dependence
CPT/HCPCS: 36415; 71045; 80048; 81001; 83690; 83735; 83880; 84484; 85025; 87426; 87804; 93306; 94640; G0378; J1100

== ENCOUNTER 2024-11-20 15:36 | Inpatient (IN) | payer MEDICAID ==
[~2024-11-20] VITALS: Ht 188 cm; Wt 82.7 kg
[~2024-11-20 15:36] MED LIST: APIX5TAB PO; ASPI81CH59 PO; ATOR-507 PO; DOXY-286 PO; FURO1TAB31 PO; FURO40TA4 PO; LIDO4PAD8 EX; MET25T PO; SENN-62 PO; SPIR25TA8 PO
--- NOTE | 2024-11-20 16:43 | DVH ---
CHEST RADIOGRAPH Indication: sob Technique: Single frontal view of the chest was obtained COMPARISON: XY CHEST PORTABLE on DOS: 10/12/24 FINDINGS: Lines and Tubes: None Lungs: Patchy infiltrate right lung base with the effacement of the right hemidiaphragm, increased si nce the prior study. Pleura: Possible small right pleural effusion No pneumothorax. Cardiomediastinal contours: Stable moderate cardiomegaly Bones: Unremarkable IMPRESSION: 1. Increasing opacification right lung base when compared to the previous study 2. 3. Stable moderate cardiomegaly Effacement right hemidiaphragm
[2024-11-20 17:15] VITALS: PULSE 130; RESP 30; O2SAT 100
[2024-11-20 17:26] LABS: Basophils # (auto) 0 10 ^3/uL (0-0.2); Basophils % (auto) 0.1 % (0.0-2.0); Eosinophils # (auto) 0 10 ^3/uL (0-0.8); Eosinophils % (auto) 0.1 % (0.0-7.0); Hematocrit 26.4 % (41.0-53.0); Hemoglobin 8.6 g/dL (13.5-17.5); Lymphocytes # (auto) 1.1 10 ^3/uL (0.4-5.4); Lymphocytes % (auto) 9.9 % (10.0-50.0); Mean Corpuscular Hemoglobin 28.5 pg (28.0-32.0); Mean Corpuscular Hgb Conc. 32.7 g/dL (32.0-36.0); Mean Corpuscular Volume 87.3 fL (80.0-100.0); Monocytes # (auto) 1.4 10 ^3/uL (0-1.3); Monocytes % (auto) 12.6 % (0.0-12.0); Neutrophils # (auto) 8.7 10 ^3/uL (1.6-8.6); Neutrophils % (auto) 77.3 % (37.0-80.0); Nucleated Red Blood Cells % 0.3 %; Platelet Count (auto) 293 10^3/uL (140-450); Red Blood Cells 3.02 10^6/uL (4.5-5.90); Red Cell Distribution Width 18.2 % (11.8-14.3); White Blood Cell 11.3 10^3/uL (4.4-10.8)
[2024-11-20 17:44] LABS: Alanine Aminotransferase 173 U/L (7-40); Alkaline Phosphatase 416 U/L (46-116); Anion Gap 7 (5-15); Aspartate Aminotransferase 109 U/L (13-40); BUN/Creatinine Ratio 23.8 (10.0-20.0); Blood Urea Nitrogen 19 mg/dL (9-23); Calcium 8.8 mg/dL (8.7-10.4); Carbon Dioxide 29 mmol/L (20-31); Chloride 97 mmol/L (98-107); Glucose 107 mg/dL (74-106); Potassium 3.5 mmol/L (3.5-5.1); Sodium 133 mmol/L (136-145)
[2024-11-20 17:45] LABS: Albumin 2.9 g/dL (3.2-4.8); Total Protein 5.4 g/dL (5.7-8.2)
--- NOTE | 2024-11-20 18:46 | ED.PDOC ---
SOB-HPI HPI Comments 59-YEAR-OLD MALE COMPLAINING OF SHORTNESS A BREATH THAT HAS BEEN INTERMITTENT FOR THE LAST TWO MONTHS. STATES IT STARTED IN AUGUST, HE WAS SEEN AT DIFFERENT ER AND DIAGNOSED WITH PNEUMONIA. THEN SAYS HE SAW HIS PRIMARY DOCTOR IN AND HE WAS ALSO TOLD THAT HE HAD A LEAKING HEART VALVE. HE WENT TO [facility] AND HAD SURGERY TO REPLACE MITRAL VALVE. HE WAS DISCHARGED ON October. STATES HE WAS ALSO INFORMED THAT HE HAS ATRIAL FIBRILLATION. PATIENT STATES WHEN HE WAS DISCHARGED HOME HE WAS 15 MEDICATIONS HE WAS SUPPOSED TO BE DISCHARGED WITH BUT HE ONLY WAS SENT 10 TO THE PHARMACY. SAYS HE BELIEVES ONE OF THOSE WAS A WATER PILL. HE HAS NOT NOTICED EXCESSIVE SWELLING IN THE LOWER EXTREMITIES OVER THE LAST WEEK. Chief Complaint: Shortness of Breath Time Seen by MD: 15:45 Primary Care Provider: pt doesnt know Reviewed notes: Nurses Notes Information Source: Patient Mode of Arrival: Wheelchair Past Medical History PAST MEDICAL HISTORY: Denies Surgical History: Denies all surgeries Family History Family History: Unknown Social History Smoker: Non-Smoker Alcohol: Denies ETOH Use Drugs: Denies Drug Use Lives In: Home Constitutional: reports: fatigue; denies: chills, diaphoresis, fever, malaise, sweats, weakness, others EENTM: denies: blurred vision, double vision, ear bleeding, ear discharge, ear drainage, ear pain, ear ringing, eye pain, eye redness, hearing loss, mouth pain, mouth swelling, nasal discharge, nose bleeding, nose congestion, nose pain, photophobia, tearing, throat pain, throat swelling, voice changes, others Respiratory: reports: SOB at rest, SOB with excertion; denies: cough, hemoptysis, orthopnea, shortness of breath, stridor, wheezing, others Cardiovascular: reports: dizzy spells; denies: chest pain, diaphoresis, Dyspnea on exertion, edema, irregular heart beat, left arm pain, lightheadedness, palpitations, PND, syncope, others Gastrointestinal: denies: abdomen distended, abdominal pain, blood streaked bowels, constipated, diarrhea, dysphagia, difficulty swallowing, hematemesis, melena, nausea, poor appetite, poor fluid intake, rectal bleeding, rectal pain, vomiting, others Genitourinary: denies: burning, dysuria, flank pain, frequency, hematuria, incontinence, penile discharge, penile sore, pain, testicle pain, testicle swelling, urgency, others Neurological: denies: dizziness, fainting, headache, left sided numbness, left sided weakness, numbness, paresthesia, pre-existing deficit, right sided numbness, right sided weakness, seizure, speech problems, tingling, tremors, weakness, others Musculoskeletal: denies: back pain, gout, joint pain, joint swelling, muscle pain, muscle stiffness, neck pain, others Integumetry: denies: bruises, change in color, change in hair/nails, dryness, laceration, lesions, lumps, rash, wounds, others Allergic/Immunocompromised: denies: Difficulty Healing, Frequent Infections, Hives, Itching, others Hematologic/Lymphatic: denies: anemia, blood clots, easy bleeding, easy bruising, swollen glands, others Physical Exam General Appearance: No Apparent Distress, Normal HEENT: Normal ENT Inspection, Pharynx Normal, TMs Normal Neck: Full Range of Motion, Non-Tender, Normal, Normal Inspection Respiratory: Chest Non-Tender, Lungs Clear, No Accessory Muscle Use, Rhonchi (RIGHT-SIDED) Cardiovascular: No Edema, No JVD, No Murmur, No Gallop, Normal Peripheral Pulses, Regular Rate/Rhythm Breast Exam: Deferred Gastrointestinal: No Organomegaly, Non Tender, No Pulsatile Mass, Normal Bowel Sounds, Soft Genitalia: Deferred Pelvic: Deferred Rectal: Deferred Extremities: No calf tenderness, Normal capillary refill, Normal inspection, Normal range of motion, Non-tender, No pedal edema Musculoskeletal : Apperance: Normal Neurologic: Alert, director enterprise sales II-XII nml as Tested, No Motor Deficits, Normal Affect, Normal Mood, No Sensory Deficits Cerebellar Function: Normal Reflexes: Normal Skin: Dry, Normal Color, Warm Lymphatic: No Adenopathy Was a procedure done? Was a procedure done?: No Differential Dx Differential Diagnosis: Anxiety, Asthma, Bronchitis, Panic Attack, Pneumonia, Pneumothorax, Pulmonary Embolism X-Ray, Labs, Meds, VS Vital Signs Date Time Temp Pulse Resp B/P (MAP) Pulse Ox O2 Delivery O2 Flow Rate FiO2 11/20/24 17:15 130 30 100 Nasal Cannula* 4 36 11/20/24 16:19 98.4 131 30 100/67 (78) 100 98.4 11/20/24 16:15 136 11/20/24 16:10 21 97 Nasal Cannula* 2 28 11/20/24 16:06 98.4 72 21 95/37 (56) 97 11/20/24 15:55 126 Lab Test 11/20/24 18:18 11/20/24 17:03 Range/Units Troponin I High Sensitivity Pending 35 </=54 ng/L White Blood Count 11.3 H 4.4-10.8 10^3/uL Red Blood Count 3.02 L 4.5-5.90 10^6/uL Hemoglobin 8.6 L 13.5-17.5 g/dL Hematocrit 26.4 L 41.0-53.0 % Mean Corpuscular Volume 87.3 80.0-100.0 fL Mean Corpuscular Hemoglobin 28.5 28.0-32.0 pg Mean Corpuscular Hemoglobin Concent 32.7 32.0-36.0 g/dL Red Cell Distribution Width 18.2 H 11.8-14.3 % Platelet Count 293 140-450 10^3/uL Mean Platelet Volume 8.2 6.9-10.8 fL Neutrophils (%) (Auto) 77.3 37.0-80.0 % Lymphocytes (%) (Auto) 9.9 L 10.0-50.0 % Monocytes (%) (Auto) 12.6 H 0.0-12.0 % Eosinophils (%) (Auto) 0.1 0.0-7.0 % Basophils (%) (Auto) 0.1 0.0-2.0 % Neutrophils # (Auto) 8.7 H 1.6-8.6 10 ^3/uL Lymphocytes # (Auto) 1.1 0.4-5.4 10 ^3/uL Monocytes # (Auto) 1.4 H 0-1.3 10 ^3/uL Eosinophils # (Auto) 0 0-0.8 10 ^3/uL Basophils # (Auto) 0 0-0.2 10 ^3/uL Nucleated Red Blood Cells 0.3 % Sodium Level 133 L 136-145 mmol/L Potassium Level 3.5 3.5-5.1 mmol/L Chloride Level 97 L 98-107 mmol/L Carbon Dioxide Level 29 20-31 mmol/L Anion Gap 7 5-15 Blood Urea Nitrogen 19 9-23 mg/dL Creatinine 0.80 0.700-1.30 mg/dL Glomerular Filtration Rate Calc 101 >90 mL/min BUN/Creatinine Ratio 23.8 H 10.0-20.0 Serum Glucose 107 H 74-106 mg/dL Calcium Level 8.8 8.7-10.4 mg/dL Total Bilirubin 2.0 H 0.2-1.0 mg/dL Aspartate Amino Transferase (AST) 109 H 13-40 U/L Alanine Aminotransferase (ALT) 173 H 7-40 U/L Alkaline Phosphatase 416 H 46-116 U/L B-Type Natriuretic Peptide 252.30 0-100 pg/mL Total Protein 5.4 L 5.7-8.2 g/dL Albumin 2.9 L 3.2-4.8 g/dL X-Ray, Labs, Meds, VS Comment IMAGING: X-RAYS AND CT SCANS WERE REVIEWED AND INTERPRETED BY THIS PROVIDER, IMAGING SHOWS RIGHT LOWER LOBE OPACITIES, CONSISTENT WITH POSSIBLE PNEUMONIA.. PENDING RADIOLOGY REVIEW. LABORATORY: LABS REVIEWED AND INTERPRETED BY THIS PROVIDER. NO SIGNIFICANT ABNORMALITIES NOTED. PATIENT HAS PRIOR MEDICAL VISITS REVIEWED. MED RECONCILIATION PERFORMED VITAL SIGNS REVIEWED PATIENT WILL BE ADMITTED FOR RIGHT LOWER LOBE PNEUMONIA, CHF EXACERBATION PATIENT WILL BE STARTED ON ROCEPHIN GIVEN IV LASIX 20 MG. Time of 1ST Reevaluation: 18:46 Reevaluation 1ST: Improved Patient Education/Counseling: Diagnosis, Treatment Family Education/Counseling: Diagnosis Departure 1 Departure Time of Disposition: 18:44 Impression: Primary Impression: Acute exacerbation of CHF (congestive heart failure) Qualified Codes: I50.23 - Acute on chronic systolic (congestive) heart failure Additional Impressions: Pneumonia Qualified Codes: J18.9 - Pneumonia, unspecified organism Thrombocytopenia Disposition: ADMITTED INPATIENT Condition: Guarded Discharged With: Self Critical Care Note Critical Care Time?: No Stability Stability form required: No Heart Score Heart Score: Heart Score Response (Comments) Value History Slightly Suspicious 0 EKG Normal 0 Age 45-64 1 Risk Factors 1 or 2 risk factors 1 Troponin Normal limit 0 Total 2 JORGE WAYNE Nov 20, 2024 18:46
[2024-11-20] MEDS: FUROSEMIDE 20 MG/2 ML VIAL IV ONE (18:58)
[2024-11-20] MEDS: cefTRIAXone 1GM/50ML D5W 50 ML IV ONE (18:58)
[2024-11-20] MEDS: ACETAMINOPHEN IV 1000 MG/100ML (10MG/ML) IV ONE (20:05)
[2024-11-20 20:07] VITALS: PULSE 130; RESP 22; O2SAT 97
[2024-11-20] MEDS ORDERED: NITROGLYCERIN 0.4 MG SL TAB SL PRN (21:30)
[2024-11-20] MEDS ORDERED: MORPHINE SULFATE INJ 2 MG/ml SYRG IV PRN (21:30)
[2024-11-20] MEDS ORDERED: ACETAMINOPHEN 325 MG TAB PO PRN (21:30)
[2024-11-20] MEDS ORDERED: HYDROcodone-ACET 5/325MG TAB PO PRN (21:30)
[2024-11-20 22:21] VITALS: PULSE 107; RESP 17; O2SAT 94
[2024-11-20] MEDS: ALBUTEROL SULF 2.5 MG/0.5ML(0.5%) NEB SOLN NEB SCH (22:21)
[2024-11-20] MEDS: IPRATROPIUM BROM 0.5 MG/2.5ML INH SOL NEB SCH (22:22)
[2024-11-20] MEDS: MELATONIN 5 MG TAB PO ONE (22:23)
[2024-11-20 22:31] VITALS: PULSE 101; RESP 18; O2SAT 100
[2024-11-21] VITALS (18 sets, daily range): BP systolic 97–110; BP diastolic 60–73; PULSE 64–139; RESP 17–22; TEMP 98.6–99; O2SAT 92–100
--- NOTE | 2024-11-21 03:21 | DVHHP2 ---
MONIK GOLDEN RED HAT OPEN STACK ADMINISTRATOR 11/21/24 0321: History of Present Illness Reason for Visit: Shortness of breath History of Present Illness Information in this HPI is limited due to the patient being a poor historian. 59-year-old male with past medical history of CHF, AFib, recent valve replacement, aortic stenosis, presents with complaints of worsening shortness of breath and leg swelling. Patient recently underwent cardiac valve replacement at [facility] and discharged on November 05. At this time patient also endorses fevers and chills. Patient states leg swelling has been much worse in the past. At this time the patient denies dizziness, chest pain, palpitations, nausea, vomiting. Cardiovascular: AFIB, HTN, valve insufficiency Smoke: No ALCOHOL: none Drugs: None Lives: with Family Review of Systems Constitutional: Yes: Fever, Chills, Sweats, Malaise; No: Weakness, Other Eyes: No: Pain, Vision change, Conjunctivae inflammation, Eyelid inflammation, Other, Redness ENT: No: Ear pain, Ear discharge, Nose pain, Nose discharge, Nose congestion, Mouth pain, Mouth swelling, Throat pain, Throat swelling, Other Respiratory: Cough, Shortness of breath, SOB with excertion; No: Dry, Wheezing, Hemoptysis, Pleuritic Pain, Sputum, Wheezing, Other Cardiovascular: Edema; No: Chest Pain, Palpitations, Orthopnea, Paroxysmal Noc. Dyspnea, Lt Headedness, Other Gastrointestinal: No: Nausea, Vomiting, Abdominal Pain, Diarrhea, Constipation, Melena, Hematochezia, Other Genitourinary: No Dysuria, No Frequency, No Incontinence, No Hematuria, No Retention, No Other Skin: No: Rash, Lesions, Jaundice, Bruising, Other Neurological: No: Weakness, Numbness, Incoordination, Change in speech, Confusion, Seizures, Other Allergies: Coded Allergies: Bee Venom (Verified Allergy, Unknown, 10/12/24) Wasp Venom Protein (Verified Allergy, Unknown, 10/12/24) Medications Current Medications Medications Dose Ordered Sig/Anthony Route Start Time Stop Time Status Last Admin Dose Admin Nitroglycerin 0.4 mg Q5MINP PRN SL 11/20/24 21:30 Morphine Sulfate 2 mg Q30M PRN IV 11/20/24 21:30 Ceftriaxone Sodium 50 ml @ 100 mls/hr DAILY IV 11/21/24 10:00 Azithromycin 250 ml @ 125 mls/hr DAILY IV 11/21/24 10:00 UNV Acetaminophen 650 mg Q6HPRN PRN PO 11/20/24 21:30 Acetaminophen/ Hydrocodone Bitart 1 tab Q6HPRN PRN PO 11/20/24 21:30 Albuterol 2.5 mg Q4HR NEB 11/20/24 22:00 11/21/24 02:00 2.5 MG Ipratropium [place] 0.5 mg Q4HPRN NEB 11/21/24 02:00 11/21/24 02:31 0.5 MG Atorvastatin Calcium 40 mg DAILY PO 11/21/24 10:00 Aspirin 81 mg DAILY PO 11/21/24 10:00 Metoprolol Tartrate 25 mg DAILY PO 11/21/24 10:00 Docusate Sodium 100 mg BID PRN PO 11/20/24 22:00 Exam Vital Signs Vital Signs Date Time Temp Pulse Resp B/P (MAP) Pulse Ox O2 Delivery O2 Flow Rate FiO2 11/21/24 02:10 111 20 100 11/21/24 00:24 98.7 108/73 2.0 28 98.7 11/20/24 22:21 Nasal Cannula General Appearance: Alert, Oriented X3, Cooperative, moderate distress HEENT: Atraumatic, PERRLA, EOMI Respiratory: Other (Diminished breath sounds right lobe. ) Cardiovascular: Normal S1, Normal S2 (AFib) Abdominal: Normal bowel sounds, Soft, No tenderness Extremities: No clubbing, No cyanosis, Normal pulses, Other (BLE edema) Skin: No rashes Neuro: Normal speech, Strength at 5/5 X4 ext Psych/Mental Status: Mental status NL, Mood NL Labs/Xrays Labs Test 11/20/24 21:55 11/20/24 20:26 11/20/24 17:03 Range/Units Lactic Acid Level 1.0 0.4-2.0 mmol/L Troponin I High Sensitivity 36 </=54 ng/L White Blood Count 11.3 H 4.4-10.8 10^3/uL Red Blood Count 3.02 L 4.5-5.90 10^6/uL Hemoglobin 8.6 L 13.5-17.5 g/dL Hematocrit 26.4 L 41.0-53.0 % Mean Corpuscular Volume 87.3 80.0-100.0 fL Mean Corpuscular Hemoglobin 28.5 28.0-32.0 pg Mean Corpuscular Hemoglobin Concent 32.7 32.0-36.0 g/dL Red Cell Distribution Width 18.2 H 11.8-14.3 % Platelet Count 293 140-450 10^3/uL Mean Platelet Volume 8.2 6.9-10.8 fL Neutrophils (%) (Auto) 77.3 37.0-80.0 % Lymphocytes (%) (Auto) 9.9 L 10.0-50.0 % Monocytes (%) (Auto) 12.6 H 0.0-12.0 % Eosinophils (%) (Auto) 0.1 0.0-7.0 % Basophils (%) (Auto) 0.1 0.0-2.0 % Neutrophils # (Auto) 8.7 H 1.6-8.6 10 ^3/uL Lymphocytes # (Auto) 1.1 0.4-5.4 10 ^3/uL Monocytes # (Auto) 1.4 H 0-1.3 10 ^3/uL Eosinophils # (Auto) 0 0-0.8 10 ^3/uL Basophils # (Auto) 0 0-0.2 10 ^3/uL Nucleated Red Blood Cells 0.3 % Sodium Level 133 L 136-145 mmol/L Potassium Level 3.5 3.5-5.1 mmol/L Chloride Level 97 L 98-107 mmol/L Carbon Dioxide Level 29 20-31 mmol/L Anion Gap 7 5-15 Blood Urea Nitrogen 19 9-23 mg/dL Creatinine 0.80 0.700-1.30 mg/dL Glomerular Filtration Rate Calc 101 >90 mL/min BUN/Creatinine Ratio 23.8 H 10.0-20.0 Serum Glucose 107 H 74-106 mg/dL Calcium Level 8.8 8.7-10.4 mg/dL Total Bilirubin 2.0 H 0.2-1.0 mg/dL Aspartate Amino Transferase (AST) 109 H 13-40 U/L Alanine Aminotransferase (ALT) 173 H 7-40 U/L Alkaline Phosphatase 416 H 46-116 U/L B-Type Natriuretic Peptide 252.30 0-100 pg/mL Total Protein 5.4 L 5.7-8.2 g/dL Albumin 2.9 L 3.2-4.8 g/dL Assessment/Plan Assessment/Plan Right lobe pneumonia R/O pleural effusion right lobe AFIB HX CHF HX cardiac valve replacement Plan Admit to telemetry Pulmonology consult. Bronchodilators. As needed supplemental O2 to maintain O2 saturation greater [place] 93%. RT monitoring. CT chest. Cardiology consult. Echocardiogram. Continue home medication. Blood cultures pending. IV ABX Gi ppx pepcid / dvt ppx scd on oral anticoagulation Plan discussed with: Patient My Orders Orders - MONIK GOLDEN NP Procedure Category Date Status Time Admit ADMIT 11/20/24 Transmitted 21:26 Code Status CODE 11/20/24 Transmitted 21:26 Vital Signs FAINA 11/20/24 In Process 21:26 Review Orders With FAINA 11/20/24 In Process Adm.Md 21:26 Notify Md Of Changes FAINA 11/20/24 In Process From Base 21:26 Advance Directive FAINA 11/20/24 In Process 21:26 Patient Condition ORDERS 11/20/24 Transmitted 21:26 Allergies FAINA 11/20/24 In Process 21:26 Nitroglycerin PHA 11/20/24 In Process Sublingual (Ntrostat 21:30 Morphine Sulfate PHA 11/20/24 In Process Injection 21:30 Stat Ekg For Chest FAINA 11/20/24 In Process Pain 21:26 Notify Md Of Changes FAINA 11/20/24 In Process From Base 21:26 Enroute Controller For FAINA 11/20/24 In Process 24 Hours 21:26 Emergency Dysrhythmia FAINA 11/20/24 In Process Protocol 21:26 Rhythm Strips Once FAINA 11/20/24 In Process Every Shift 21:26 Oxygen By Nasal RT 11/20/24 Transmitted Cannula 21:26 Ceftriaxone 1gm/50ml PHA 11/21/24 In Process D5w (Rocephin) 10:00 Azithromycin 500mg/ PHA 11/21/24 Pending 250ml (Zithromax 50 10:00 Acetaminophen Tablet PHA 11/20/24 In Process (Tylenol Tablet) 21:30 Hydrocodone-Acet PHA 11/20/24 In Process 5/325mg Tab ([place] 21:30 Albuterol Medneb PHA 11/20/24 In Process (Ventolin Medneb) 22:00 Ipratropium Medneb PHA 11/21/24 In Process (Atrovent Medneb) 02:00 Blood Culture MARCOS 11/20/24 In Process 21:26 * Cardiology Consult CONS 11/20/24 Transmitted 21:26 *Consult CONS 11/20/24 Transmitted / 21:26 Atorvastatin (Lipitor) PHA 11/21/24 In Process 10:00 Aspirin Enteric PHA 11/21/24 In Process Coated Tablet 10:00 Metoprolol Tartrate PHA 11/21/24 In Process Tablet (Lopressor Ta 10:00 Docusate Sodium PHA 11/20/24 In Process Capsule (Colace 22:[address] 11/21/24 Logged 03:07 Apixaban (Eliquis) PHA 11/21/24 Transmitted 10:00 Date of Service: Nov 21, 2024 Billing Provider: MALLORY LIGHT MD Common Visit Codes: NOT BILLABLE MALLORY LIGHT MD 11/21/24 1517: Review of Systems Allergies: Coded Allergies: Bee Venom (Verified Allergy, Unknown, 10/12/24) Wasp Venom Protein (Verified Allergy, Unknown, 10/12/24) Additional Comments Additional Comments Additional Comments 59-year-old male with known history of aortic stenosis status post open heart surgery for aortic valve replacement at [facility] recently presented to the hospital with shortness breath and low oxygen saturati on at home found to have 1. Acute hypoxic regularly. Continue to multifocal pneumonia 2. Multifocal pneumonia, rule out lung masses 3. Right-sided pleural effusion 4. Acute congestive heart failure exacerbation with likely systolic dysfunction 5. Solid/cystic mass anterior to ascending aorta rule out necrotic malignancy/abscess 6. Mediastinal lymphadenopathy 7. Aortic valve stenosis status post aortic valve replacement at [facility] -IV antibiotics, infectious disease consultation and Cardiology consultation, IV diuretics, bilious as per home oxygen requirement upon discharge -patient needs CT chest with contrast to evaluate the mediastinum mass. MONIK GOLDEN NP Nov 21, 2024 03:21 MALLORY LIGHT MD Nov 21, 2024 15:17
[2024-11-21] MEDS: APIXABAN 5 MG TAB PO SCH (09:21)
[2024-11-21] MEDS: ATORVASTATIN 20 MG TAB PO SCH (09:21)
[2024-11-21] MEDS: cefTRIAXone 1GM/50ML D5W 50 ML IV SCH (09:21)
[2024-11-21] MEDS: ASPirin-EC 81 mg tab PO SCH (09:21)
[2024-11-21] MEDS: METOPROLOL TARTRATE 25 MG TAB PO SCH (09:22)
--- NOTE | 2024-11-21 12:03 | DVH ---
EXAM: CT CHEST WITHOUT CONTRAST HISTORY: r/o pleural effusion COMPARISON: None TECHNIQUE: Axial images were obtained and reformatted in coronal and sagittal planes. All CT scans a t [facility] are performed using dose modulation techniques as appropriate to a performed exam including the following: Automated exposure control was utilized; adjustment of the MA and/or KV according to patient size; and use of iterative reconstruction technique. CT Dose: CTDI volume is 17.83 mGy. Dose-length product is 748.59 mGy*cm FINDINGS: Lower neck: Unremarkable. Cardiomediastinal: Moderate cardiomegaly. Coronary artery calcification. An artificial aortic valve is seen. Aorta is normal in caliber with scattered calcified plaques. Moderate pericardial effusion. Septated solid and cystic mass in the anterior mediastinum anterior to the ascending aorta measuring 8 cm in craniocaudal 4.6 cm transverse, suboptimally evaluated without IV contrast. Several mediasti nal lymph nodes are seen measuring up to 2 x 1 cm. Lungs: Moderate-sized right pleural effusion. There is consolidation of the right lower lobe. Modera te opacities in the left lower lobe, right middle bilateral upper lobes noted some appearing nodular or masslike measuring up to 3.3 cm. Bones and Soft Tissues: Median sternotomy wires noted. Several subcentimeter foci are seen in the ri ght axilla between pectoralis major and minor muscles. Upper Abdomen: No acute abnormality. A 1 cm cyst is seen in the posterior right hepatic lobe. No adre nal lesion is seen. Other: None. IMPRESSION: 1. Moderate right pleural effusion and bilateral multifocal opacities may represent pneumonia and/or pulmonary nodule/masses. 2. Suboptimally evaluated solid and cystic septated lesion in the anterior upper mediastinum anterior to the ascending aorta measuring approximately 8 x 4.6 cm that could be abscess, necrotic lymph node or necrotic malignancy. Further evaluation with chest CT scan with IV contrast is recommended. 3. Mediastinal lymphadenopathy. 4. Moderate pericardial effusion. 5. Few subcentimeter air foci in the right axilla between the major and minor pectoralis muscles that may be related to a recent procedure or reflect gas producing infection. Recommend clinical and bioc hemical correlation.
--- NOTE | 2024-11-21 12:34 | ECG ---
[facility] Test Date: 2024-11-20 Test Time: 15:55:32 Pat Name: RADHA HESS Department: ED Room: 0294T A Gender: M Flat Examiner: SHARON : 1965 Requested By: JORGE WAYNE Order Number: [id number] Reading MD: Tenzin Mccoy Measurements Intervals [place] Rate: 126 P: 0 VT: 0 QRS: 88 QRSD: 112 T: -75 QT: 292 QTc: 423 Interpretive Statements Atrial fibrillation Borderline intraventricular conduction delay Nonspecific repol abnormality, diffuse leads Electronically Signed On 11-24-2024 17:32:57 PST by Tenzin Mccoy Please click the below link to view image of tracing.
[2024-11-21] MEDS: AZITHROMYCIN 500MG/ 250ML 250 ML IV SCH (12:39)
[2024-11-21 16:25] LABS: Base Excess 5.7 mmol/L (-2.0-3.0)
[2024-11-21] MEDS: ceFAZolin 2 GM/D5W50ml 50 ML IV SCH (21:40)
--- NOTE | 2024-11-21 23:14 | DVHINCON2 ---
DATE OF CONSULTATION: 11/21/2024 REFERRING PHYSICIAN: ____. CONSULTING PHYSICIAN: Dr. Maldonado. INDICATION: Shortness of breath. HISTORY OF PRESENT ILLNESS: The patient is a 59-year-old male with history of hypertension, CHF, AFib, severe aortic stenosis, status post surgical aortic valve replacement with bioprosthesis about 2 weeks ago at [place] who now presented to the hospital with complaints of shortness of breath, cough, phlegm, fever and chills. The patient is now admitted with diagnosis of pneumonia. CT chest also showed incidental finding of pleural -- pericardial effusion. PAST MEDICAL HISTORY: * Aortic stenosis, status post surgical aortic valve replacement 2 weeks ago at [place]. * Hypertension. * AFib. * CHF. MEDICATIONS: Per med rec. ALLERGIES: No known drug allergies. PHYSICAL EXAMINATION: GENERAL: Alert and awake, in no form of cardiopulmonary distress. VITAL SIGNS: Blood pressure 101/68, pulse 102 per minute, saturation 99%. HEENT: No carotid bruits. No jugular venous distention. CHEST: Bilateral air entry. Scattered wheeze and rhonchi. CARDIOVASCULAR: Precordial and carotid pulses palpable. Normal S1, S2. EXTREMITIES: Bilateral trace edema. DIAGNOSTIC DATA: White count 11, hemoglobin 8, platelet 293. Sodium 133, potassium 3.5, creatinine is 0.8. Troponin negative x3. BNP is 252. ASSESSMENT: * Hypoxia. * Multifocal pneumonia. * Pleural effusion. * Pericardial effusion on CAT scan. * History of aortic stenosis, status post aortic valve replacement surgically. RECOMMENDATIONS: * Continue IV antibiotics. * Continue anticoagulation therapy. * Monitor electrolytes closely. Keep potassium above 4 and keep magnesium above 2. * Continue beta shanon. * Obtain echo. * Continue telemetry monitoring. Thank you for allowing me to participate in the care of this patient. MD HOLDEN Jimenez/RUSSEL/VINAY TID: [id number] RECEIPT: [id number]
--- NOTE | 2024-11-21 23:54 | DVHINCON2 ---
Date of service: Nov 21, 2024 Referring Physician Yuriy Eduardo NP Reason for Consultation Acute hypoxic respiratory failure, pneumonia and pleural effusion History of Present Illness A 59-year-old man with past medical history of CHF, atrial fibrillation, hypertension, aortic stenosis and recent valve replacement who presented to ED on 11/20/24 with complaints of worsening shortness of breath and leg swelling. Patient recently underwent cardiac valve replacement at [facility] [place] and discharged on November 05. At this time patient also endorses fevers and chills. Patient states leg swelling has been much worse in the past. At this time the patient denies dizziness, chest pain, palpitations, nausea, vomiting. Patient was admitted for further care and pulmonary consultat ion is requested for evaluation and management of acute hypoxic respiratory failure, pneumonia and pleural effusion. Review of Systems: 14-point review of systems negative unless otherwise noted above. Past Medical History: CHF, atrial fibrillation, hypertension, aortic stenosis Past Surgical History: Recent aortic valve replacement at [facility] Medications: Reviewed. Allergies: Bee venom, wasp venom. Family History: Chronic obstructive pulmonary disease. Alcoholism Social History: Nonsmoker. No alcohol or illicit drug use. Family History: Alcoholism G8 FATHER, Chronic obstructive pulmonary disease G8 MOTHER, FH: smoking G8 MOTHER, G8 FATHER, Allergies: Coded Allergies: Bee Venom (Verified Allergy, Unknown, 10/12/24) Wasp Venom Protein (Verified Allergy, Unknown, 10/12/24) Home Meds Reported Medications Apixaban Base (ELIQUIS) 5 Mg Tab, 1 TAB PO BID for 30 Days, #60 11/22/24 Famotidine (Famotidine) 20 Mg Tab, 1 TAB PO BID for 30 Days, #60 11/22/24 Metoprolol Tartrate (Lopressor) 25 Mg Tb, 1 TAB PO DAILY for 30 Days, #30 0 Refills 11/22/24 Lidocaine (Lidocaine Pain Relief Pat) 4 % Pad, 1 PATCH EX DAILY for 30 Days, #30 11/22/24 Aspirin (Aspirin Low Dose) 81 Mg Chw, 1 TAB PO DAILY for 30 Days, #30 11/22/24 Atorvastatin Calcium (Lipitor) 40 Mg Tab, 1 TAB PO DAILY for 30 Days, #30 11/22/24 Spironolactone (Spironolactone) 25 Mg Tab, 1 TAB PO DAILY for 30 Days, #30 2/27/25 Sennosides-Docusate Sodium (Senokot S) 1 Tab Tab, 1 TAB PO BID for 30 Days, #60 11/22/24 Furosemide (Furosemide) 40 Mg Tab, 1 TAB PO DAILY for 30 Days, #30 11/22/24 Current Medications Current Medications Medications (Trade) Dose Ordered Sig/Anthony Route PRN Reason Start Time Stop Time Status Last Admin Ceftriaxone Sodium 50 ml @ 100 mls/hr DAILY IV 11/21/24 10:00 11/21/24 17:03 DC 11/21/24 09:21 Azithromycin 250 ml @ 125 mls/hr DAILY IV 11/21/24 10:00 11/21/24 12:39 Ipratropium [place] (Atrovent Medneb) 0.5 mg Q4HPRN NEB 11/21/24 02:00 11/21/24 13:55 Atorvastatin Calcium (Lipitor) 40 mg DAILY PO 11/21/24 10:00 11/21/24 09:21 Aspirin (Ecotrin Enteric Coated Tablet) 81 mg DAILY PO 11/21/24 10:00 11/21/24 09:21 Metoprolol Tartrate (Lopressor Tablet) 25 mg DAILY PO 11/21/24 10:00 11/21/24 09:22 Apixaban (Eliquis) 5 mg BID PO 11/21/24 10:00 11/21/24 21:26 Cefazolin Sodium/ Dextrose 50 ml @ 50 mls/hr Q8HR IV 11/21/24 22:00 11/21/24 21:40 Vital Signs Vital Signs Date Time Temp Pulse Resp B/P (MAP) Pulse Ox O2 Delivery O2 Flow Rate FiO2 11/21/24 22:11 78 18 96 11/21/24 21:00 99.0 97/61 (73) 99.0 11/21/24 18:35 Nasal Cannula 4.0 11/21/24 18:35 36 Physical Exam Gen.: Patient lying in bed in no apparent distress. On supplemental oxygen. Head: Normocephalic, atraumatic. Eyes: EOMI/PERRLA. Ears: Normal hearing. Normal anatomy. Neck/trachea: Trachea midline, supple. Nose: Normal external anatomy. Mouth: Moist mucous membranes. Chest: Decreased air entry bilaterally. No wheezing or rhonchi. Cardiovascular: Positive S1, positive S2. Regular rate and rhythm. Abdomen: Positive bowel sounds in all 4 quadrants. Soft, non-tender, non- distended. : Deferred. Rectal: Deferred. Skin: Warm, dry. Intact. Extremities: 2+ radial pulses bilaterally. No lower extremity edema. Neuro: Awake, alert, oriented x3. No gross motor or sensory deficits. Cranial nerves II through XII intact. Gait not assessed. Labs/Diagnostic Data Labs Test 11/21/24 16:13 11/20/24 21:55 11/20/24 20:26 11/20/24 17:03 Range/Units Blood Gas Specimen Type Arterial Blood Gas Sample Site Right radial Blood Gas Patient Temperature 37.0 Arterial Blood Date Drawn [id number] Arterial Blood pH 7.554 *H 7.350-7.450 Arterial Blood Partial Pressure CO2 32.6 L 35.0-48.0 mmHg Arterial Blood Partial Pressure O2 41.2 *L 83.0-108.0 mmHg Arterial Blood HCO3 28.1 H 21.0-28.0 mmol/L Arterial Blood Oxygen Saturation 79.9 *L 94.0-98.0 % Arterial Blood Base Excess 5.7 H -2.0-3.0 mmol/L Arterial Blood Oxyhemoglobin 78.5 L 94.0-98.0 % Arterial Blood Carboxyhemoglobin 1.5 0.5-1.5 % Arterial Blood Methemoglobin 0.3 0.0-1.5 % Kumar Test Yes Blood Gas Total Hemoglobin 9.10 L 13.5-17.5 g/dL Blood Gas Modality Room air FiO2 % 21.0 Blood Gas Critical Value Read Back Yes Blood Gas Notified Whom Dr. vani sabillon Blood Gas Notified Time [id number] Blood Gas Notified By Lactic Acid Level 1.0 0.4-2.0 mmol/L Troponin I High Sensitivity 36 </=54 ng/L White Blood Count 11.3 H 4.4-10.8 10^3/uL Red Blood Count 3.02 L 4.5-5.90 10^6/uL Hemoglobin 8.6 L 13.5-17.5 g/dL Hematocrit 26.4 L 41.0-53.0 % Mean Corpuscular Volume 87.3 80.0-100.0 fL Mean Corpuscular Hemoglobin 28.5 28.0-32.0 pg Mean Corpuscular Hemoglobin Concent 32.7 32.0-36.0 g/dL Red Cell Distribution Width 18.2 H 11.8-14.3 % Platelet Count 293 140-450 10^3/uL Mean Platelet Volume 8.2 6.9-10.8 fL Neutrophils (%) (Auto) 77.3 37.0-80.0 % Lymphocytes (%) (Auto) 9.9 L 10.0-50.0 % Monocytes (%) (Auto) 12.6 H 0.0-12.0 % Eosinophils (%) (Auto) 0.1 0.0-7.0 % Basophils (%) (Auto) 0.1 0.0-2.0 % Neutrophils # (Auto) 8.7 H 1.6-8.6 10 ^3/uL Lymphocytes # (Auto) 1.1 0.4-5.4 10 ^3/uL Monocytes # (Auto) 1.4 H 0-1.3 10 ^3/uL Eosinophils # (Auto) 0 0-0.8 10 ^3/uL Basophils # (Auto) 0 0-0.2 10 ^3/uL Nucleated Red Blood Cells 0.3 % Sodium Level 133 L 136-145 mmol/L Potassium Level 3.5 3.5-5.1 mmol/L Chloride Level 97 L 98-107 mmol/L Carbon Dioxide Level 29 20-31 mmol/L Anion Gap 7 5-15 Blood Urea Nitrogen 19 9-23 mg/dL Creatinine 0.80 0.700-1.30 mg/dL Glomerular Filtration Rate Calc 101 >90 mL/min BUN/Creatinine Ratio 23.8 H 10.0-20.0 Serum Glucose 107 H 74-106 mg/dL Calcium Level 8.8 8.7-10.4 mg/dL Total Bilirubin 2.0 H 0.2-1.0 mg/dL Aspartate Amino Transferase (AST) 109 H 13-40 U/L Alanine Aminotransferase (ALT) 173 H 7-40 U/L Alkaline Phosphatase 416 H 46-116 U/L B-Type Natriuretic Peptide 252.30 0-100 pg/mL Total Protein 5.4 L 5.7-8.2 g/dL Albumin 2.9 L 3.2-4.8 g/dL Microbiology Date/Time Source Procedure Growth Status 11/21/24 06:00 Nose MRSA Screen - Final Complete 2/25/25 21:55 Blood Blood Culture - Preliminary NO GROWTH AFTER 24 HOURS OF INCUBATION. Resulted Assessment Impression: Acute hypoxic respiratory failure Dependence on supplemental oxygen Multifocal pneumonia, rule out lung masses Right pleural effusion Atelectasis Acute CHF exacerbation with likely systolic dysfunction Mediastinal mass, rule out necrotic malignancy/abscess Mediastinal lymphadenopathy Pericardial effusion Aortic valve stenosis s/p aortic valve replacement Plan: CT chest reviewed; Moderate right pleural effusion and bilateral multifocal opacities, may represent pneumonia and/or pulmonary nodule/masses. Suboptimally evaluated solid and cystic septated lesion in the anterior upper mediastinum anterior to the ascending aorta measuring approximately 8 x 4.6 cm that could be abscess, necrotic lymph node or necrotic malignancy. Mediastinal lymphadenopathy. Moderate pericardial effusion. Supplemental oxygen Titrate to keep O2 sats above 92%. Continue bronchodilators. Antibiotics Incentive spirometry Eliquis BID Follow up Cardiology recommendations Monitor renal function. Monitor electrolytes. Supplement as necessary. Monitor ins and outs. DVT prophylaxis. Prognosis: Poor given patient's multiple co-morbidities. Rest of plan per hospitalist and other consultants. Thank you, LOUIS Eduardo, for allowing me to participate in this patient's care. Further recommendations will depend on the patient's clinical course. Please do not hesitate to contact me if you have any questions or concerns. This medical document was created using an electronic medical record system with [employer] dictation system. Although these documentations are being carefully reviewed, there may still be some phonetic and typographical changes. The errors are purely typographical, due to imperfection on the software program, and do not reflect any compromise in the patient's medical care. Plan discussed with: Patient, Other (RN/LOUIS Eduardo/) KYM HUDSON MD Nov 21, 2024 23:54
[2024-11-22] VITALS (21 sets, daily range): BP systolic 97–122; BP diastolic 60–71; PULSE 54–115; RESP 14–19; TEMP 97.8–98.6; O2SAT 90–100
[2024-11-22] MEDS ORDERED: FAMO-12 PO (12:00)
--- NOTE | 2024-11-22 12:26 | DVHINCON2 ---
Date of service: Nov 22, 2024 Reason for Consultation Right lobe pneumonia History of Present Illness Patient is a 59-year-old male presents to the hospital with past medical history of CHF, AFib, recent valve replacement, aortic stenosis, presents with complaints of worsening shortness of breath and leg swelling. He also reports cough, phlegm, fever and chills. Information in this HPI is limited due to the patient being a poor historian. Patient recently underwent cardiac valve replacement at [facility] and discharged on November 05. Patient states leg swelling has been much worse in the past. The patient is now admitted with diagnosis of pneumonia. CT chest also showed incidental finding of pleural -- pericardial effusion. Past Medical History Patient's past medical history is significant for AFIB, HTN and valve insufficiency Family History: Alcoholism G8 FATHER, Chronic obstructive pulmonary disease G8 MOTHER, FH: smoking G8 MOTHER, G8 FATHER, Social History Smoke: No ALCOHOL: none Drugs: None Lives: with Family Allergies: Coded Allergies: Bee Venom (Verified Allergy, Unknown, 10/12/24) Wasp Venom Protein (Verified Allergy, Unknown, 10/12/24) Home Meds Reported Medications Apixaban Base (ELIQUIS) 5 Mg Tab, 1 TAB PO BID for 30 Days, #60 11/22/24 Famotidine (Famotidine) 20 Mg Tab, 1 TAB PO BID for 30 Days, #60 11/22/24 Metoprolol Tartrate (Lopressor) 25 Mg Tb, 1 TAB PO DAILY for 30 Days, #30 0 Refills 11/22/24 Lidocaine (Lidocaine Pain Relief Pat) 4 % Pad, 1 PATCH EX DAILY for 30 Days, #30 11/22/24 Aspirin (Aspirin Low Dose) 81 Mg Chw, 1 TAB PO DAILY for 30 Days, #30 11/22/24 Atorvastatin Calcium (Lipitor) 40 Mg Tab, 1 TAB PO DAILY for 30 Days, #30 11/22/24 Spironolactone (Spironolactone) 25 Mg Tab, 1 TAB PO DAILY for 30 Days, #30 11/22/24 Sennosides-Docusate Sodium (Senokot S) 1 Tab Tab, 1 TAB PO BID for 30 Days, #60 11/22/24 Furosemide (Furosemide) 40 Mg Tab, 1 TAB PO DAILY for 30 Days, #30 11/22/24 Current Medications Current Medications Medications (Trade) Dose Ordered Sig/Anthony Route PRN Reason Start Time Stop Time Status Last Admin Cefazolin Sodium/ Dextrose 50 ml @ 50 mls/hr Q8HR IV 11/21/24 22:00 11/22/24 05:31 Review of Systems Constitutional: Yes: Fever, Chills, Sweats, Malaise; No: Weakness, Other Eyes: No: Pain, Vision change, Conjunctivae inflammation, Eyelid inflammation, Other, Redness ENT: No: Ear pain, Ear discharge, Nose pain, Nose discharge, Nose congestion, Mouth pain, Mouth swelling, Throat pain, Throat swelling, Other Respiratory: Cough, Shortness of breath, SOB with exertion; No: Dry, Wheezing, Hemoptysis, Pleuritic Pain, Sputum, Wheezing, Other Cardiovascular: Edema; No: Chest Pain, Palpitations, Orthopnea, Paroxysmal Noc. Dyspnea, Lt Headedness, Other Gastrointestinal: No: Nausea, Vomiting, Abdominal Pain, Diarrhea, Constipation, Melena, Hematochezia, Other Genitourinary: No Dysuria, No Frequency, No Incontinence, No Hematuria, No Retention, No Other Skin: No: Rash, Lesions, Jaundice, Bruising, Other Neurological: No: Weakness, Numbness, Incoordination, Change in speech, Confusion, Seizures, Other Vital Signs Vital Signs Date Time Temp Pulse Resp B/P (MAP) Pulse Ox O2 Delivery O2 Flow Rate FiO2 11/22/24 11:02 83 16 92 11/22/24 10:53 Nasal Cannula* 4 36 11/22/24 09:30 113/73 11/22/24 09:00 98.1 98.1 Physical Exam General Appearance: Alert, Oriented X3, Cooperative, moderate distress HEENT: Atraumatic, PERRLA, EOMI Respiratory: Other (Diminished breath sounds right lobe. ) Cardiovascular: Normal S1, Normal S2 (AFib) Abdominal: Normal bowel sounds, Soft, No tenderness Extremities: No clubbing, No cyanosis, Normal pulses, Other (BLE edema) Skin: No rashes Neuro: Normal speech, Strength at 5/5 X4 ext Psych/Mental Status: Mental status NL, Mood NL Labs/Diagnostic Data Labs Test 11/21/24 16:13 11/20/24 21:55 11/20/24 20:26 11/20/24 17:03 Range/Units Blood Gas Specimen Type Arterial Blood Gas Sample Site Right radial Blood Gas Patient Temperature 37.0 Arterial Blood Date Drawn [id number] Arterial Blood pH 7.554 *H 7.350-7.450 Arterial Blood Partial Pressure CO2 32.6 L 35.0-48.0 mmHg Arterial Blood Partial Pressure O2 41.2 *L 83.0-108.0 mmHg Arterial Blood HCO3 28.1 H 21.0-28.0 mmol/L Arterial Blood Oxygen Saturation 79.9 *L 94.0-98.0 % Arterial Blood Base Excess 5.7 H -2.0-3.0 mmol/L Arterial Blood Oxyhemoglobin 78.5 L 94.0-98.0 % Arterial Blood Carboxyhemoglobin 1.5 0.5-1.5 % Arterial Blood Methemoglobin 0.3 0.0-1.5 % Kumar Test Yes Blood Gas Total Hemoglobin 9.10 L 13.5-17.5 g/dL Blood Gas Modality Room air FiO2 % 21.0 Blood Gas Critical Value Read Back Yes Blood Gas Notified Whom Dr. vani sabillon Blood Gas Notified Time [id number] Blood Gas Notified By Lactic Acid Level 1.0 0.4-2.0 mmol/L Troponin I High Sensitivity 36 </=54 ng/L White Blood Count 11.3 H 4.4-10.8 10^3/uL Red Blood Count 3.02 L 4.5-5.90 10^6/uL Hemoglobin 8.6 L 13.5-17.5 g/dL Hematocrit 26.4 L 41.0-53.0 % Mean Corpuscular Volume 87.3 80.0-100.0 fL Mean Corpuscular Hemoglobin 28.5 28.0-32.0 pg Mean Corpuscular Hemoglobin Concent 32.7 32.0-36.0 g/dL Red Cell Distribution Width 18.2 H 11.8-14.3 % Platelet Count 293 140-450 10^3/uL Mean Platelet Volume 8.2 6.9-10.8 fL Neutrophils (%) (Auto) 77.3 37.0-80.0 % Lymphocytes (%) (Auto) 9.9 L 10.0-50.0 % Monocytes (%) (Auto) 12.6 H 0.0-12.0 % Eosinophils (%) (Auto) 0.1 0.0-7.0 % Basophils (%) (Auto) 0.1 0.0-2.0 % Neutrophils # (Auto) 8.7 H 1.6-8.6 10 ^3/uL Lymphocytes # (Auto) 1.1 0.4-5.4 10 ^3/uL Monocytes # (Auto) 1.4 H 0-1.3 10 ^3/uL Eosinophils # (Auto) 0 0-0.8 10 ^3/uL Basophils # (Auto) 0 0-0.2 10 ^3/uL Nucleated Red Blood Cells 0.3 % Sodium Level 133 L 136-145 mmol/L Potassium Level 3.5 3.5-5.1 mmol/L Chloride Level 97 L 98-107 mmol/L Carbon Dioxide Level 29 20-31 mmol/L Anion Gap 7 5-15 Blood Urea Nitrogen 19 9-23 mg/dL Creatinine 0.80 0.700-1.30 mg/dL Glomerular Filtration Rate Calc 101 >90 mL/min BUN/Creatinine Ratio 23.8 H 10.0-20.0 Serum Glucose 107 H 74-106 mg/dL Calcium Level 8.8 8.7-10.4 mg/dL Total Bilirubin 2.0 H 0.2-1.0 mg/dL Aspartate Amino Transferase (AST) 109 H 13-40 U/L Alanine Aminotransferase (ALT) 173 H 7-40 U/L Alkaline Phosphatase 416 H 46-116 U/L B-Type Natriuretic Peptide 252.30 0-100 pg/mL Total Protein 5.4 L 5.7-8.2 g/dL Albumin 2.9 L 3.2-4.8 g/dL Microbiology Date/Time Source Procedure Growth Status 11/21/24 06:00 Nose MRSA Screen - Final Complete 11/20/24 21:55 Blood Blood Culture - Preliminary NO GROWTH AFTER 24 HOURS OF INCUBATION. Resulted Assessment Patient is a 59-year-old male presents to the hospital with: Right lobe pneumonia R/O pleural effusion right lobe AFIB HX CHF HX cardiac valve replacement Recommendations: Antibiotic status: Cefazolin Sodium IV [Started on 11/21 - Ongoing] Azithromycin IV [Started on 11/21 - Ongoing] Culture review: 11/21, MRSA screening: Negative 11/20, Blood culture preliminary showed no growth Imaging review: 11/22, Chest US showed Small right and trace left pleural effusion 11/21, Chest CT showed incidental finding of pleural -- pericardial effusion 11/20, Chest x-ray showed Increasing opacification right lung base when compared to the previous study. Stable moderate cardiomegaly. Effacement right hemidiaphragm Thank you for consult. JYOTSNA JIMNEEZ MD Nov 22, 2024 12:26
[2024-11-22] MEDS ORDERED: METOPROLOL TARTRATE 25 MG TAB PO ONE (15:15)
[2024-11-22] MEDS: METOPROLOL TARTRATE 50 MG TAB PO ONE (16:32)
--- NOTE | 2024-11-22 17:05 | DVHPN2 ---
Subjective Patient was currently eating his lunch with his family member, complaining of shortness of breaths but feeling much better as compared to when he came in. Reviewed: Care Plan Changes from previous H/P or p: No Changes Eyes: No Pain, No Vision change, No Conjunctivae inflammation, No Eyelid inflammation, No Other, No Redness ENT: No Ear pain, No Ear discharge, No Nose pain, No Nose discharge, No Nose congestion, No Mouth pain, No Mouth swelling, No Throat pain, No Throat swelling, No Other Cardiovascular: No Chest Pain, No Palpitations, No Orthopnea, No Paroxysmal Noc. Dyspnea; Edema; No Lt Headedness, No Other Respiratory: Cough; No Dry; Shortness of breath, SOB with excertion; No Wheezing, No Hemoptysis, No Pleuritic Pain, No Sputum, No Other Gastrointestinal: No Nausea, No Vomiting, No Abdominal Pain, No Diarrhea, No Constipation, No Melena, No Hematochezia, No Other Genitourinary: No Dysuria, No Frequency, No Incontinence, No Hematuria, No Retention, No Other Skin: No Rash, No Lesions, No Jaundice, No Bruising, No Other Objective Vitals Vital Signs Date Time Temp Pulse Resp B/P (MAP) Pulse Ox O2 Delivery O2 Flow Rate FiO2 11/22/24 16:32 117 102/66 11/22/24 13:45 15 99 11/22/24 13:37 Nasal Cannula* 4 36 11/22/24 12:39 97.8 97.8 Intake/Output Intake and Output 11/22/24 07:00 Intake Total 3446 ml Output Total 1700 ml Balance 1746 ml Intake Oral 3096 ml IV Total 350 ml Output Urine Total 1700 ml Exam HEENT pupils are reactive Neck is supple CV is S1-S2 regular rate and rhythm Respiratory bilateral basal crackles GI posterior bowel sound Extremity 1+ pitting edema [employer] no motor deficit Medications Current Medications Medications Dose Ordered Sig/Anthony Route Start Time Stop Time Status Last Admin Dose Admin Nitroglycerin 0.4 mg Q5MINP PRN SL 11/20/24 21:30 Morphine Sulfate 2 mg Q30M PRN IV 11/20/24 21:30 Azithromycin 250 ml @ 125 mls/hr DAILY IV 11/21/24 10:00 11/22/24 09:31 125 MLS/HR Acetaminophen 650 mg Q6HPRN PRN PO 11/20/24 21:30 Acetaminophen/ Hydrocodone Bitart 1 tab Q6HPRN PRN PO 11/20/24 21:30 Albuterol 2.5 mg Q4HR NEB 11/20/24 22:00 11/22/24 13:37 2.5 MG Ipratropium Justin 0.5 mg Q4HPRN NEB 11/21/24 02:00 11/22/24 13:37 0.5 MG Atorvastatin Calcium 40 mg DAILY PO 11/21/24 10:00 11/22/24 08:43 40 MG Aspirin 81 mg DAILY PO 11/21/24 10:00 11/22/24 08:39 81 MG Docusate Sodium 100 mg BID PRN PO 11/20/24 22:00 Apixaban 5 mg BID PO 11/21/24 10:00 11/22/24 08:39 5 MG Cefazolin Sodium/ Dextrose 50 ml @ 50 mls/hr Q8HR IV 11/21/24 22:00 11/22/24 15:48 50 MLS/HR Furosemide 40 mg BIDD IV 11/22/24 18:00 Metoprolol Tartrate 50 mg BID PO 11/22/24 22:00 Laboratory Results Laboratory Tests 11/20/24 17:03 Microbiology Microbiology Date/Time Source Procedure Growth Status 11/21/24 06:00 Nose MRSA Screen - Final Complete 11/20/24 21:55 Blood Blood Culture - Preliminary NO GROWTH AFTER 24 HOURS OF INCUBATION. Resulted Assessment/Plan Assessment/Plan 59-year-old male with known history of aortic stenosis status post open heart surgery for aortic valve replacement at [facility] recently presented to the hospital with shortness breath and low oxygen s aturation at home found to have 1. Acute hypoxic respiratory failure 2/2 to multifocal pneumonia 2. Multifocal pneumonia, rule out lung masses 3. Right-sided pleural effusion 4. Acute congestive heart failure exacerbation with likely systolic dysfunction 5. Solid/cystic mass anterior to ascending aorta rule out necrotic malignancy/abscess 6. Mediastinal lymphadenopathy 7. Aortic valve stenosis status post aortic valve replacement at [facility] -continue current management, IV diuretics, daily weights strict I&Os, follow up Cardiology recommendations. Plan discussed with: Patient, Other My Orders Orders - MALLORY LIGHT MD Procedure Category Date Status Time Furosemide Injection PHA 11/22/24 In Process (Lasix Injection) 18:00 Metoprolol Tartrate PHA 11/22/24 In Process Tablet (Lopressor Ta 22:00 Date of Service: Nov 22, 2024 Billing Provider: MALLORY LIGHT MD Common Visit Codes: NOT BILLABLE MALLORY LIGHT MD Nov 22, 2024 17:05
--- NOTE | 2024-11-22 18:15 | DVH ---
Bilateral Chest Sonogram Clinical history: eval if pleural effusion amenable for thoracentesis Technique: Limited sonographic evaluation of the right and left chest was performed. Findings/Impression: Small right and trace left pleural effusion. This is not amenable for percutaneous thoracentesis at this time end appears decreased since CT dated 11/21/2024.
[2024-11-22] MEDS: FUROSEMIDE 40 MG/4 ML VIAL IV SCH (18:31)
[2024-11-22] MEDS: METOPROLOL TARTRATE 50 MG TAB PO SCH (20:42)
--- NOTE | 2024-11-22 22:47 | DVHPN2 ---
Progress Note - Dictate Date Seen: Nov 22, 2024 Medical Necessity Reason Pt with a Central, PICC or Fol: No Subjective Patient seen and examined at bedside. Remains on supplemental oxygen Overnight events reviewed. vital signs Vital Sign Date Time Temp Pulse Resp B/P (MAP) Pulse Ox O2 Delivery O2 Flow Rate FiO2 11/22/24 22:00 92 14 99 11/22/24 21:54 Nasal Cannula 4.0 11/22/24 21:54 36 11/22/24 21:00 98.6 101/60 (74) 98.6 Total Intake and Output 11/21/24 11/21/24 11/22/24 15:00 23:00 07:00 Intake Total 1486 ml 1210 ml 750 ml Output Total 1200 ml 500 ml Balance 1486 ml 10 ml 250 ml medications Current Medications Medications Dose Ordered Sig/Anthony Route Start Time Stop Time Status Last Admin Dose Admin Nitroglycerin 0.4 mg Q5MINP PRN SL 11/20/24 21:30 Morphine Sulfate 2 mg Q30M PRN IV 11/20/24 21:30 Azithromycin 250 ml @ 125 mls/hr DAILY IV 11/21/24 10:00 11/22/24 09:31 125 MLS/HR Acetaminophen 650 mg Q6HPRN PRN PO 11/20/24 21:30 Acetaminophen/ Hydrocodone Bitart 1 tab Q6HPRN PRN PO 11/20/24 21:30 Albuterol 2.5 mg Q4HR NEB 11/20/24 22:00 11/22/24 21:54 2.5 MG Ipratropium [place] 0.5 mg Q4HPRN NEB 11/21/24 02:00 11/22/24 13:37 0.5 MG Atorvastatin Calcium 40 mg DAILY PO 11/21/24 10:00 11/22/24 08:43 40 MG Aspirin 81 mg DAILY PO 11/21/24 10:00 11/22/24 08:39 81 MG Docusate Sodium 100 mg BID PRN PO 11/20/24 22:00 Apixaban 5 mg BID PO 11/21/24 10:00 11/22/24 20:41 5 MG Cefazolin Sodium/ Dextrose 50 ml @ 50 mls/hr Q8HR IV 11/21/24 22:00 11/22/24 21:50 50 MLS/HR Furosemide 40 mg BIDD IV 11/22/24 18:00 11/22/24 18:31 40 MG Metoprolol Tartrate 50 mg BID PO 11/22/24 22:00 11/22/24 20:42 50 MG objective Gen.: Patient lying in bed in no apparent distress. On supplemental oxygen. Head: Normocephalic, atraumatic. Eyes: EOMI/PERRLA. Ears: Normal hearing. Normal anatomy. Neck/trachea: Trachea midline, supple. Nose: Normal external anatomy. Mouth: Moist mucous membranes. Chest: Decreased air entry bilaterally. No wheezing or rhonchi. Cardiovascular: Positive S1, positive S2. Regular rate and rhythm. Abdomen: Positive bowel sounds in all 4 quadrants. Soft, non-tender, non- distended. : Deferred. Rectal: Deferred. Skin: Warm, dry. Intact. Extremities: 2+ radial pulses bilaterally. No lower extremity edema. Neuro: Awake, alert, oriented x3. No gross motor or sensory deficits. Cranial nerves II through XII intact. Gait not assessed. laboratory and microbiology Laboratory Tests 11/20/24 17:03 Test 11/20/24 17:03 Range/Units Serum Glucose 107 H 74-106 mg/dL Assessment/Plan Impression: Acute hypoxic respiratory failure Dependence on supplemental oxygen Multifocal pneumonia, rule out lung masses Right pleural effusion Atelectasis Acute CHF exacerbation with likely systolic dysfunction Mediastinal mass, rule out necrotic malignancy/abscess Mediastinal lymphadenopathy Pericardial effusion Aortic valve stenosis s/p aortic valve replacement Events: Remains on supplemental oxygen, 4 LPM NC Taper O2 as tolerated Obtain limited chest ultrasound to evaluate if pleural effusion amenable for thoracentesis. Continue bronchodilators Continue antibiotics Incentive spirometry Eliquis BID Obtain PT/INR Cardiology recommendations appreciated Labs and imaging reviewed. Rest of plan as noted below. Plan: CT chest reviewed; Moderate right pleural effusion and bilateral multifocal opacities, may represent pneumonia and/or pulmonary nodule/masses. Suboptimally evaluated solid and cystic septated lesion in the anterior upper mediastinum anterior to the ascending aorta measuring approximately 8 x 4.6 cm that could be abscess, necrotic lymph node or necrotic malignancy. Mediastinal lymphadenopathy. Moderate pericardial effusion. Supplemental oxygen 4 LPM NC Titrate to keep O2 sats above 92%. Continue bronchodilators. Antibiotics Incentive spirometry Eliquis BID Cardiology recommendations appreciated Monitor renal function. Monitor electrolytes. Supplement as necessary. Monitor ins and outs. DVT prophylaxis. Prognosis: Guarded given patient's multiple co-morbidities. Rest of plan per hospitalist and other consultants. Thank you, LOUIS Eduardo, for allowing me to participate in this patient's care. Further recommendations will depend on the patient's clinical course. Please do not hesitate to contact me if you have any questions or concerns. This medical document was created using an electronic medical record system with [employer] dictation system. Although these documentations are being carefully reviewed, there may still be some phonetic and typographical changes. The errors are purely typographical, due to imperfection on the software program, and do not reflect any compromise in the patient's medical care. Dietary Evaluation Review Comments: 1. Promote wound healing: Shreyas BID, MVI including Zinc 2. Follow current diet, Monitor and encourage PO intakes Expected Outcomes/Goals: Improved nutrition status, maintain wt. Plan discussed with: Patient, Other (JIMENA Hannon) KYM HUDSON MD Nov 22, 2024 22:47
[2024-11-23] VITALS (23 sets, daily range): BP systolic 96–108; BP diastolic 57–70; PULSE 71–141; RESP 13–22; TEMP 97.4–98.6; O2SAT 93–100
[2024-11-23 06:25] LABS: Basophils # (auto) 0 10 ^3/uL (0-0.2); Eosinophils # (auto) 0 10 ^3/uL (0-0.8); Hematocrit 26.3 % (41.0-53.0); Neutrophils # (auto) 9.6 10 ^3/uL (1.6-8.6); Red Blood Cells 3.06 10^6/uL (4.5-5.90)
[2024-11-23 06:28] LABS: Basophils % (auto) 0.2 % (0.0-2.0); Eosinophils % (auto) 0.4 % (0.0-7.0); Hemoglobin 8.3 g/dL (13.5-17.5); Lymphocytes % (auto) 8.1 % (10.0-50.0); Mean Corpuscular Hemoglobin 27.3 pg (28.0-32.0); Mean Corpuscular Hgb Conc. 31.8 g/dL (32.0-36.0); Mean Corpuscular Volume 85.8 fL (80.0-100.0); Monocytes # (auto) 1.6 10 ^3/uL (0-1.3); Monocytes % (auto) 12.9 % (0.0-12.0); Neutrophils % (auto) 78.4 % (37.0-80.0); Platelet Count (auto) 280 10^3/uL (140-450); Red Cell Distribution Width 17.7 % (11.8-14.3); White Blood Cell 12.2 10^3/uL (4.4-10.8)
[2024-11-23 06:35] LABS: INR 1.32 (0.9-1.15); Prothrombin Time 13.6 sec (9.3-11.8)
--- NOTE | 2024-11-23 10:35 | DVHPN2 ---
Progress Note - Dictate Medical Necessity Reason Pt with a Central, PICC or Fol: No Subjective Patient reports shortness of breath, but he feels much better comparatively. Sputum sample sent today. vital signs Vital Sign Date Time Temp Pulse Resp B/P (MAP) Pulse Ox O2 Delivery O2 Flow Rate FiO2 11/23/24 10:26 97 16 98 11/23/24 10:08 104/65 11/23/24 09:00 97.9 97.9 11/23/24 06:52 Nasal Cannula 4.0 11/23/24 06:52 36 Total Intake and Output 11/22/24 11/22/24 11/23/24 15:00 23:00 07:00 Intake Total 610 ml 1030 ml 1600 ml Output Total 600 ml Balance 610 ml 430 ml 1600 ml medications Current Medications Medications Dose Ordered Sig/Anthony Route Start Time Stop Time Status Last Admin Dose Admin Nitroglycerin 0.4 mg Q5MINP PRN SL 11/20/24 21:30 Morphine Sulfate 2 mg Q30M PRN IV 11/20/24 21:30 Azithromycin 250 ml @ 125 mls/hr DAILY IV 11/21/24 10:00 11/23/24 10:07 125 MLS/HR Acetaminophen 650 mg Q6HPRN PRN PO 11/20/24 21:30 Acetaminophen/ Hydrocodone Bitart 1 tab Q6HPRN PRN PO 11/20/24 21:30 Albuterol 2.5 mg Q4HR NEB 11/20/24 22:00 11/23/24 10:26 2.5 MG Ipratropium [place] 0.5 mg Q4HPRN NEB 11/21/24 02:00 11/23/24 10:26 0.5 MG Atorvastatin Calcium 40 mg DAILY PO 11/21/24 10:00 11/23/24 10:08 40 MG Aspirin 81 mg DAILY PO 11/21/24 10:00 11/23/24 10:08 81 MG Docusate Sodium 100 mg BID PRN PO 11/20/24 22:00 Apixaban 5 mg BID PO 11/21/24 10:00 11/23/24 10:08 5 MG Cefazolin Sodium/ Dextrose 50 ml @ 50 mls/hr Q8HR IV 11/21/24 22:00 11/23/24 06:04 50 MLS/HR Furosemide 40 mg BIDD IV 11/22/24 18:00 11/23/24 06:11 40 MG Metoprolol Tartrate 50 mg BID PO 11/22/24 22:00 11/23/24 10:08 50 MG objective General Appearance: Alert, Oriented X3, Cooperative, moderate distress HEENT: Atraumatic, PERRLA, EOMI Respiratory: Other (Diminished breath sounds right lobe. ) Cardiovascular: Normal S1, Normal S2 (AFib) Abdominal: Normal bowel sounds, Soft, No tenderness Extremities: No clubbing, No cyanosis, Normal pulses, Other (BLE edema) Skin: No rashes Neuro: Normal speech, Strength at 5/5 X4 ext Psych/Mental Status: Mental status NL, Mood NL laboratory and microbiology Laboratory Tests 11/23/24 05:32 11/20/24 17:03 Test 11/20/24 17:03 Range/Units Serum Glucose 107 H 74-106 mg/dL Assessment/Plan Patient is a 59-year-old male presents to the hospital with: Right lobe pneumonia R/O pleural effusion right lobe AFIB HX CHF HX cardiac valve replacement Recommendations: Antibiotic status: Cefazolin Sodium IV [Started on 11/21 - Ongoing] Azithromycin IV [Started on 11/21 - Ongoing] Culture review: 11/21, MRSA screening: Negative 11/20, Blood culture preliminary showed no growth Imaging review: 11/22, Chest US showed Small right and trace left pleural effusion 11/21, Chest CT showed incidental finding of pleural -- pericardial effusion 11/20, Chest x-ray showed Increasing opacification right lung base when compared to the previous study. Stable moderate cardiomegaly. Effacement right hemidiaphragm Thank you for consult. Dietary Evaluation Review Comments: 1. Promote wound healing: Shreyas BID, MVI including Zinc 2. Follow current diet, Monitor and encourage PO intakes Expected Outcomes/Goals: Improved nutrition status, maintain wt. JYOTSNA JIMENEZ MD Nov 23, 2024 10:35
--- NOTE | 2024-11-23 17:39 | DVHPN2 ---
Subjective Patient is feeling much better Reviewed: Care Plan Changes from previous H/P or p: No Changes Eyes: No Pain, No Vision change, No Conjunctivae inflammation, No Eyelid inflammation, No Other, No Redness ENT: No Ear pain, No Ear discharge, No Nose pain, No Nose discharge, No Nose congestion, No Mouth pain, No Mouth swelling, No Throat pain, No Throat swelling, No Other Cardiovascular: No Chest Pain, No Palpitations, No Orthopnea, No Paroxysmal Noc. Dyspnea; Edema; No Lt Headedness, No Other Respiratory: Cough; No Dry; Shortness of breath, SOB with excertion; No Wheezing, No Hemoptysis, No Pleuritic Pain, No Sputum, No Other Gastrointestinal: No Nausea, No Vomiting, No Abdominal Pain, No Diarrhea, No Constipation, No Melena, No Hematochezia, No Other Genitourinary: No Dysuria, No Frequency, No Incontinence, No Hematuria, No Retention, No Other Skin: No Rash, No Lesions, No Jaundice, No Bruising, No Other Objective Vitals Vital Signs Date Time Temp Pulse Resp B/P (MAP) Pulse Ox O2 Delivery O2 Flow Rate FiO2 11/23/24 14:48 96 16 99 11/23/24 13:00 97.7 96/57 (70) 97.7 11/23/24 10:00 Nasal Cannula* 4 36 Intake/Output Intake and Output 11/23/24 07:00 Intake Total 3240 ml Output Total 600 ml Balance 2640 ml Intake Oral 3140 ml IV Total 100 ml Output Urine Total 600 ml # Voids 6 Exam HEENT pupils are reactive Neck is supple CV is S1-S2 regular rate and rhythm Respiratory bilateral basal crackles GI posterior bowel sound Extremity 1+ 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 Medications Current Medications Medications Dose Ordered Sig/Anthony Route Start Time Stop Time Status Last Admin Dose Admin Nitroglycerin 0.4 mg Q5MINP PRN SL 11/20/24 21:30 Morphine Sulfate 2 mg Q30M PRN IV 11/20/24 21:30 Azithromycin 250 ml @ 125 mls/hr DAILY IV 11/21/24 10:00 11/23/24 10:07 125 MLS/HR Acetaminophen 650 mg Q6HPRN PRN PO 11/20/24 21:30 Acetaminophen/ Hydrocodone Bitart 1 tab Q6HPRN PRN PO 11/20/24 21:30 Albuterol 2.5 mg Q4HR NEB 11/20/24 22:00 11/23/24 14:38 2.5 MG Ipratropium [place] 0.5 mg Q4HPRN NEB 11/21/24 02:00 11/23/24 14:38 0.5 MG Atorvastatin Calcium 40 mg DAILY PO 11/21/24 10:00 11/23/24 10:08 40 MG Aspirin 81 mg DAILY PO 11/21/24 10:00 11/23/24 10:08 81 MG Docusate Sodium 100 mg BID PRN PO 11/20/24 22:00 Apixaban 5 mg BID PO 11/21/24 10:00 11/23/24 10:08 5 MG Cefazolin Sodium/ Dextrose 50 ml @ 50 mls/hr Q8HR IV 11/21/24 22:00 11/23/24 14:00 50 MLS/HR Furosemide 40 mg BIDD IV 11/22/24 18:00 11/23/24 06:11 40 MG Metoprolol Tartrate 50 mg BID PO 11/22/24 22:00 11/23/24 10:08 50 MG Guaifenesin/ Dextromethorphan 10 ml Q4HP PRN PO 11/23/24 17:30 Laboratory Results Laboratory Tests 11/20/24 17:03 11/23/24 05:32 Coagulation Test 11/23/24 05:32 Prothrombin Time 13.6 sec (9.3-11.8) H Prothrombin Time INR 1.32 (0.9-1.15) H Microbiology Microbiology Date/Time Source Procedure Growth Status 11/21/24 06:00 Nose MRSA Screen - Final Complete 11/20/24 21:55 Blood Blood Culture - Preliminary NO GROWTH AFTER 48 HOURS OF INCUBATION. Resulted Assessment/Plan Assessment/Plan 59-year-old male with known history of aortic stenosis status post open heart surgery for aortic valve replacement at [facility] recently presented to the hospital with shortness breath and low oxygen s aturation at home found to have 1. Acute hypoxic respiratory failure 2/2 to multifocal pneumonia 2. Multifocal pneumonia, rule out lung masses 3. Right-sided pleural effusion rule out parapneumonic effusion 4. Acute congestive heart failure exacerbation with likely systolic dysfunction 5. Retrosternal Mediastinal fluid collection with air foci suspect postoperative changes versus abscess 6. Mediastinal lymphadenopathy 7. Aortic valve stenosis status post aortic valve replacement at [facility] -continue current management, IV diuretics, IV antibiotics, daily weights strict I&Os, follow up Cardiology recommendations. Plan discussed with: Patient My Orders Orders - MALLORY LIGHT MD Procedure Category Date Status Time Respiratory Culture MARCOS 11/23/24 In Process W/ Gs 14:33 Date of Service: Nov 23, 2024 Billing Provider: MALLORY LIGHT MD Common Visit Codes: NOT BILLABLE MALLORY LIGHT MD Nov 23, 2024 17:39
[2024-11-23] MEDS: guaiFENesin-DM 100/10mg/5ml SYR PO PRN (17:48)
[2024-11-23] MEDS ORDERED: VANCOMYCIN PER PHARMACY 0 MG IV SCH (22:15)
[2024-11-23] MEDS: VANCOMYCIN 1GM/250mL NS or D5W KIT IV SCH (23:00)
--- NOTE | 2024-11-23 23:16 | DVHPN2 ---
Progress Note - Dictate Date Seen: Nov 23, 2024 Medical Necessity Reason Pt with a Central, PICC or Fol: No Subjective Patient seen and examined at bedside. Remains on supplemental oxygen Overnight events reviewed. vital signs Vital Sign Date Time Temp Pulse Resp B/P (MAP) Pulse Ox O2 Delivery O2 Flow Rate FiO2 11/23/24 22:58 101 16 101/63 95 3.0 32 11/23/24 21:59 Nasal Cannula* 11/23/24 21:00 98.6 98.6 Total Intake and Output 11/22/24 11/22/24 11/23/24 15:00 23:00 07:00 Intake Total 610 ml 1030 ml 1600 ml Output Total 600 ml Balance 610 ml 430 ml 1600 ml medications Current Medications Medications Dose Ordered Sig/Anthony Route Start Time Stop Time Status Last Admin Dose Admin Nitroglycerin 0.4 mg Q5MINP PRN SL 11/20/24 21:30 Morphine Sulfate 2 mg Q30M PRN IV 11/20/24 21:30 Acetaminophen 650 mg Q6HPRN PRN PO 11/20/24 21:30 Acetaminophen/ Hydrocodone Bitart 1 tab Q6HPRN PRN PO 11/20/24 21:30 Albuterol 2.5 mg Q4HR NEB 11/20/24 22:00 11/23/24 22:02 2.5 MG Ipratropium [place] 0.5 mg Q4HPRN NEB 11/21/24 02:00 11/23/24 19:24 0.5 MG Atorvastatin Calcium 40 mg DAILY PO 11/21/24 10:00 11/23/24 10:08 40 MG Aspirin 81 mg DAILY PO 11/21/24 10:00 11/23/24 10:08 81 MG Docusate Sodium 100 mg BID PRN PO 11/20/24 22:00 Apixaban 5 mg BID PO 11/21/24 10:00 11/23/24 21:28 5 MG Furosemide 40 mg BIDD IV 11/22/24 18:00 11/23/24 17:48 40 MG Metoprolol Tartrate 50 mg BID PO 11/22/24 22:00 11/23/24 21:28 50 MG Guaifenesin/ Dextromethorphan 10 ml Q4HP PRN PO 11/23/24 17:30 11/23/24 17:48 10 ML Vancomycin HCl 0 ml @ 0 mls/hr UD IV 11/23/24 22:15 UNV Ceftriaxone Sodium/Dextrose 50 ml @ 50 mls/hr DAILY IV 11/24/24 10:00 Vancomycin HCl 250 ml @ 250 mls/hr Q1H IV 11/23/24 22:30 11/24/24 00:29 objective Gen.: Patient lying in bed in no apparent distress. On supplemental oxygen. Head: Normocephalic, atraumatic. Eyes: EOMI/PERRLA. Ears: Normal hearing. Normal anatomy. Neck/trachea: Trachea midline, supple. Nose: Normal external anatomy. Mouth: Moist mucous membranes. Chest: Decreased air entry bilaterally. No wheezing or rhonchi. Cardiovascular: Positive S1, positive S2. Regular rate and rhythm. Abdomen: Positive bowel sounds in all 4 quadrants. Soft, non-tender, non- distended. : Deferred. Rectal: Deferred. Skin: Warm, dry. Intact. Extremities: 2+ radial pulses bilaterally. No lower extremity edema. Neuro: Awake, alert, oriented x3. No gross motor or sensory deficits. Cranial nerves II through XII intact. Gait not assessed. laboratory and microbiology Laboratory Tests 11/23/24 05:32 11/20/24 17:03 Test 11/20/24 17:03 Range/Units Serum Glucose 107 H 74-106 mg/dL Assessment/Plan Impression: Acute hypoxic respiratory failure Dependence on supplemental oxygen Multifocal pneumonia, rule out lung masses Right pleural effusion Atelectasis Acute CHF exacerbation with likely systolic dysfunction Mediastinal mass, rule out necrotic malignancy/abscess Mediastinal lymphadenopathy Pericardial effusion Aortic valve stenosis s/p aortic valve replacement Events: Remains on supplemental oxygen, 3 LPM NC Taper O2 as tolerated Patient with hemoptysis Limited chest ultrasound revealed small right pleural effusion and trace left pleural effusion. Continue bronchodilators Continue antibiotics Antitussive for cough Incentive spirometry Eliquis BID Cardiology recommendations appreciated Wound care Labs and imaging reviewed. Rest of plan as noted below. Plan: Supplemental oxygen Titrate to keep O2 sats above 92%. Continue bronchodilators. Antibiotics Incentive spirometry Eliquis BID Cardiology recommendations appreciated Monitor renal function. Monitor electrolytes. Supplement as necessary. Monitor ins and outs. DVT prophylaxis. Prognosis: Guarded given patient's multiple co-morbidities. Rest of plan per hospitalist and other consultants. Thank you, LOUIS Eduardo, for allowing me to participate in this patient's care. Further recommendations will depend on the patient's clinical course. Please do not hesitate to contact me if you have any questions or concerns. This medical document was created using an electronic medical record system with [employer] dictation system. Although these documentations are being carefully reviewed, there may still be some phonetic and typographical changes. The errors are purely typographical, due to imperfection on the software program, and do not reflect any compromise in the patient's medical care. Dietary Evaluation Review Comments: 1. Promote wound healing: Shreyas BID, MVI including Zinc 2. Follow current diet, Monitor and encourage PO intakes Expected Outcomes/Goals: Improved nutrition status, maintain wt. Plan discussed with: Patient, Other (RN Summer) KYM HUDSON MD Nov 23, 2024 23:16
[2024-11-23] MEDS: cefTRIAXone 1GM/50ML D5W 100 ML IV ONE (23:18)
[2024-11-24] VITALS (20 sets, daily range): BP systolic 100–111; BP diastolic 48–71; PULSE 96–124; RESP 16–21; TEMP 97.7–99.5; O2SAT 94–100
[2024-11-24] MEDS: cefTRIAXone 2GM/50ML D5W 50 ML IV ONE (00:04)
[2024-11-24] MEDS: cefTRIAXone 2GM/50ML D5W 50 ML IV SCH (10:34)
[2024-11-24 11:37] LABS: Anion Gap 7 (5-15); BUN/Creatinine Ratio 14.7 (10.0-20.0); Blood Urea Nitrogen 10 mg/dL (9-23); Calcium 9.1 mg/dL (8.7-10.4); Total Protein 5.9 g/dL (5.7-8.2)
[2024-11-24 11:38] LABS: Bilirubin, Total 1.1 mg/dL (0.2-1.0)
[2024-11-24 11:43] LABS: Alanine Aminotransferase 84 U/L (7-40); Albumin 2.9 g/dL (3.2-4.8); Alkaline Phosphatase 392 U/L (46-116); Aspartate Aminotransferase 60 U/L (13-40); Carbon Dioxide 36 mmol/L (20-31); Chloride 88 mmol/L (98-107); Glucose 168 mg/dL (74-106); Potassium 2.8 mmol/L (3.5-5.1); Sodium 131 mmol/L (136-145)
[2024-11-24] MEDS ORDERED: IOHEXOL 300 MG/ML 100ML BOTTLE IJ ONE (11:50)
--- NOTE | 2024-11-24 13:08 | DVH ---
Procedure: CT CHEST WITH CONTRAST Reason for study/Clinical History: R/O MEDIASTINAL ABSCESS; RECENT STERNAL SURGERY Comparison Study: None available at time of dictation. Exam Date: 11/24/2024 12:04 PM Radiation Dose Information: CT Dose: CTDI volume is 16.28 mGy. Dose-length product is 752.9 mGy*cm Contrast: Type of contrast: Omnipaque 300 Contrast inject: 100 cc Contrast wasted:0 TECHNIQUE: After the uneventful administration of intravenous contrast intravenously, CT imaging was performed through the chest. Coronal and sagittal reformations were performed by the technologist. Sagittal and coronal reformatted imaging performed. FINDINGS: Lower Neck: Visualized portions of the thyroid gland are unremarkable. Aorta and Vasculature: Normal caliber of thoracic aorta. Lymph Nodes: No enlarged intrathoracic lymph nodes. Mediastinum: Retrosternal fluid collection seen which extends from the superior mediastinum to the [place] of the atrial veins. Tiny collections of air seen within the fluid collection, axial image 43, s eries 3. Postoperative sternotomy changes with wires noted. No diastasis of the sternum identified. Lungs: Large right pleural effusion. Right lower lobe consolidation with air bronchograms. Left lower lobe infiltrate mild to moderate in size. Patchy infiltrates in the mid to upper left lung. Musculoskeletal: No acute osseous abnormality. Upper abdomen: 5 cm right upper pole renal cysts. No pancreatitis. No obstructive uropathy. Contracte d gallbladder. IMPRESSION: 1. Large fluid collection posterior to the sternum containing tiny air bubbles. Infectious etiology s hould be considered. No well-developed abscess seen with respect of the retrosternal fluid collection which is large in degree.Large right pleural effusion Bilateral pulmonary infiltrates, right greater than left as discussed above All CT scans at this medical facility are performed using dose modulation techniques as appropriate t o a performed exam including the following: Automated exposure control was utilized; adjustment of th e MA and/or KV according to patient size; and use of iterative reconstruction technique.
--- NOTE | 2024-11-24 16:02 | DVHPN2 ---
Subjective Patient is currently on minimal O2 supplementation, feeling better Reviewed: Care Plan Changes from previous H/P or p: No Changes Eyes: No Pain, No Vision change, No Conjunctivae inflammation, No Eyelid inflammation, No Other, No Redness ENT: No Ear pain, No Ear discharge, No Nose pain, No Nose discharge, No Nose congestion, No Mouth pain, No Mouth swelling, No Throat pain, No Throat swelling, No Other Cardiovascular: No Chest Pain, No Palpitations, No Orthopnea, No Paroxysmal Noc. Dyspnea; Edema; No Lt Headedness, No Other Respiratory: Cough; No Dry; Shortness of breath, SOB with excertion; No Wheezing, No Hemoptysis, No Pleuritic Pain, No Sputum, No Other Gastrointestinal: No Nausea, No Vomiting, No Abdominal Pain, No Diarrhea, No Constipation, No Melena, No Hematochezia, No Other Genitourinary: No Dysuria, No Frequency, No Incontinence, No Hematuria, No Retention, No Other Skin: No Rash, No Lesions, No Jaundice, No Bruising, No Other Objective Vitals Vital Signs Date Time Temp Pulse Resp B/P (MAP) Pulse Ox O2 Delivery O2 Flow Rate FiO2 11/24/24 14:51 100 16 100 11/24/24 14:45 Nasal Cannula 3.0 11/24/24 14:45 32 11/24/24 10:36 108/64 11/24/24 09:00 97.7 97.7 Intake/Output Intake and Output 11/24/24 07:00 Intake Total 3184 ml Output Total 3200 ml Balance -16 ml Intake Oral 2234 ml IV Total 950 ml Output Urine Total 3200 ml # Bowel Movements 1 Exam HEENT pupils are reactive Neck is supple CV is S1-S2 regular rate and rhythm Respiratory bilateral basal crackles GI posterior bowel sound Extremity 1+ pitting edema [employer]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 Medications Current Medications Medications Dose Ordered Sig/Anthony Route Start Time Stop Time Status Last Admin Dose Admin Nitroglycerin 0.4 mg Q5MINP PRN SL 11/20/24 21:30 Morphine Sulfate 2 mg Q30M PRN IV 11/20/24 21:30 Acetaminophen 650 mg Q6HPRN PRN PO 11/20/24 21:30 Acetaminophen/ Hydrocodone Bitart 1 tab Q6HPRN PRN PO 11/20/24 21:30 Albuterol 2.5 mg Q4HR NEB 11/20/24 22:00 11/24/24 14:45 2.5 MG Ipratropium [place] 0.5 mg Q4HPRN NEB 11/21/24 02:00 11/24/24 14:45 0.5 MG Atorvastatin Calcium 40 mg DAILY PO 11/21/24 10:00 11/24/24 10:35 40 MG Aspirin 81 mg DAILY PO 11/21/24 10:00 11/24/24 10:35 81 MG Docusate Sodium 100 mg BID PRN PO 11/20/24 22:00 Apixaban 5 mg BID PO 11/21/24 10:00 11/24/24 10:35 5 MG Furosemide 40 mg BIDD IV 11/22/24 18:00 11/24/24 06:15 40 MG Metoprolol Tartrate 50 mg BID PO 11/22/24 22:00 11/24/24 10:36 50 MG Guaifenesin/ Dextromethorphan 10 ml Q4HP PRN PO 11/23/24 17:30 11/23/24 17:48 10 ML Vancomycin HCl 0 ml @ 0 mls/hr UD IV 11/23/24 22:15 Ceftriaxone Sodium/Dextrose 50 ml @ 50 mls/hr DAILY IV 11/24/24 10:00 11/24/24 10:34 50 MLS/HR Vancomycin HCl 250 ml @ 200 mls/hr Q12H IV 11/24/24 21:00 Laboratory Results Laboratory Tests 11/23/24 05:32 11/24/24 10:14 Chemistry Test 11/24/24 10:14 Albumin 2.9 g/dL (3.2-4.8) L Calcium Level 9.1 mg/dL (8.7-10.4) Total Protein 5.9 g/dL (5.7-8.2) LFT Test 11/24/24 10:14 Alanine Aminotransferase (ALT) 84 U/L (7-40) H Alkaline Phosphatase 392 U/L (46-116) H Aspartate Amino Transferase (AST) 60 U/L (13-40) H Total Bilirubin 1.1 mg/dL (0.2-1.0) H Microbiology Microbiology Date/Time Source Procedure Growth Status 11/23/24 14:31 Sputum Gram Stain - Final Resulted 11/23/24 14:31 Sputum Respiratory Culture - Preliminary Resulted 11/21/24 06:00 Nose MRSA Screen - Final Complete 11/20/24 21:55 Blood Blood Culture - Preliminary NO GROWTH AFTER 72 HOURS OF INCUBATION. Resulted Assessment/Plan Assessment/Plan 59-year-old male with known history of aortic stenosis status post open heart surgery for aortic valve replacement at [facility] recently presented to the hospital with shortness breath and low oxygen s aturation at home found to have 1. Acute hypoxic respiratory failure 2/2 to multifocal pneumonia 2. Multifocal pneumonia, rule out lung masses 3. Right-sided pleural effusion 4. Acute congestive heart failure exacerbation with likely systolic dysfunction 5. Retrosternal mediastinal fluid collection rule out abscess 6. Mediastinal lymphadenopathy 7. Aortic valve stenosis status post aortic valve replacement at [facility] -continue current management, IV diuretics, daily weights strict I&Os, follow up Cardiology recommendations. Plan discussed with: Patient Date of Service: Nov 24, 2024 Billing Provider: MALLORY LIGHT MD Common Visit Codes: NOT BILLABLE MALLORY LIGHT MD Nov 24, 2024 16:02
[2024-11-24] MEDS: SODIUM CHLORIDE 0.9% 1,000 ML IV SCH (17:00)
[2024-11-24] MEDS: VANCOMYCIN 1GM/250ML KIT 250 ML IV SCH (21:23)
--- NOTE | 2024-11-24 23:01 | DVHPN2 ---
Progress Note - Dictate Date Seen: Nov 24, 2024 Medical Necessity Reason Pt with a Central, PICC or Fol: No Subjective Patient seen and examined at bedside. Remains on supplemental oxygen Overnight events reviewed. vital signs Vital Sign Date Time Temp Pulse Resp B/P (MAP) Pulse Ox O2 Delivery O2 Flow Rate FiO2 11/24/24 22:28 115 140/80 11/24/24 22:00 18 100 11/24/24 21:00 99.5 99.5 11/24/24 14:45 Nasal Cannula 3.0 11/24/24 14:45 32 Total Intake and Output 11/23/24 11/23/24 11/24/24 14:59 22:59 06:59 Intake Total 300 ml 1834 ml 1050 ml Output Total 2200 ml 1000 ml Balance 300 ml -366 ml 50 ml medications Current Medications Medications Dose Ordered Sig/Anthony Route Start Time Stop Time Status Last Admin Dose Admin Nitroglycerin 0.4 mg Q5MINP PRN SL 11/20/24 21:30 Morphine Sulfate 2 mg Q30M PRN IV 11/20/24 21:30 Acetaminophen 650 mg Q6HPRN PRN PO 11/20/24 21:30 Acetaminophen/ Hydrocodone Bitart 1 tab Q6HPRN PRN PO 11/20/24 21:30 Albuterol 2.5 mg Q4HR NEB 11/20/24 22:00 11/24/24 21:51 2.5 MG Ipratropium [place] 0.5 mg Q4HPRN NEB 11/21/24 02:00 11/24/24 14:45 0.5 MG Atorvastatin Calcium 40 mg DAILY PO 11/21/24 10:00 11/24/24 10:35 40 MG Aspirin 81 mg DAILY PO 11/21/24 10:00 11/24/24 10:35 81 MG Docusate Sodium 100 mg BID PRN PO 11/20/24 22:00 Apixaban 5 mg BID PO 11/21/24 10:00 11/24/24 21:22 5 MG Furosemide 40 mg BIDD IV 11/22/24 18:00 11/24/24 17:40 40 MG Metoprolol Tartrate 50 mg BID PO 11/22/24 22:00 11/24/24 22:28 50 MG Guaifenesin/ Dextromethorphan 10 ml Q4HP PRN PO 11/23/24 17:30 11/24/24 21:26 10 ML Vancomycin HCl 0 ml @ 0 mls/hr UD IV 11/23/24 22:15 Ceftriaxone Sodium/Dextrose 50 ml @ 50 mls/hr DAILY IV 11/24/24 10:00 11/24/24 10:34 50 MLS/HR Vancomycin HCl 250 ml @ 200 mls/hr Q12H IV 11/24/24 21:00 11/24/24 21:23 200 MLS/HR Sodium Chloride 1,000 ml @ 70 mls/hr [id number] IV 11/24/24 17:00 11/24/24 17:00 70 MLS/HR objective Gen.: Patient lying in bed in no apparent distress. On supplemental oxygen. Head: Normocephalic, atraumatic. Eyes: EOMI/PERRLA. Ears: Normal hearing. Normal anatomy. Neck/trachea: Trachea midline, supple. Nose: Normal external anatomy. Mouth: Moist mucous membranes. Chest: Decreased air entry bilaterally. No wheezing or rhonchi. Cardiovascular: Positive S1, positive S2. Regular rate and rhythm. Abdomen: Positive bowel sounds in all 4 quadrants. Soft, non-tender, non- distended. : Deferred. Rectal: Deferred. Skin: Warm, dry. Intact. Extremities: 2+ radial pulses bilaterally. No lower extremity edema. Neuro: Awake, alert, oriented x3. No gross motor or sensory deficits. Cranial nerves II through XII intact. Gait not assessed. laboratory and microbiology Laboratory Tests 11/24/24 10:14 11/23/24 05:32 Test 11/24/24 10:14 Range/Units Serum Glucose 168 H 74-106 mg/dL Assessment/Plan Impression: Acute hypoxic respiratory failure Dependence on supplemental oxygen Multifocal pneumonia, rule out lung masses Right pleural effusion Atelectasis Acute CHF exacerbation with likely systolic dysfunction Mediastinal mass, rule out necrotic malignancy/abscess Mediastinal lymphadenopathy Pericardial effusion Aortic valve stenosis s/p aortic valve replacement Events: Remains on supplemental oxygen, 3 LPM NC Taper O2 as tolerated CT chest w/ contrast showed large right pleural effusion Plan for limited chest ultrasound in AM to assess if pleural effusion amenable for thoracentesis Continue bronchodilators Continue antibiotics Antitussive for cough Incentive spirometry Plan for right thoracentesis for evacuation of right pleural effusion Plan for bronchoscopy in AM with BAL for cultures, possible brushings, possible biopsy. Aditiqu [place] Cardiology recommendations appreciated Wound care Labs and imaging reviewed. Rest of plan as noted below. Plan: Supplemental oxygen Titrate to keep O2 sats above 92%. Continue bronchodilators. Antibiotics Incentive spirometry Eliquis [place] Cardiology recommendations appreciated Monitor renal function. Monitor electrolytes. Supplement as necessary. Monitor ins and outs. DVT prophylaxis. Prognosis: Guarded given patient's multiple co-morbidities. Rest of plan per hospitalist and other consultants. Thank you, LOUIS Eduardo, for allowing me to participate in this patient's care. Further recommendations will depend on the patient's clinical course. Please do not hesitate to contact me if you have any questions or concerns. This medical document was created using an electronic medical record system with [employer] dictation system. Although these documentations are being carefully reviewed, there may still be some phonetic and typographical changes. The errors are purely typographical, due to imperfection on the software program, and do not reflect any compromise in the patient's medical care. Dietary Evaluation Review Comments: 1. Promote wound healing: Shreyas BID, MVI including Zinc 2. Follow current diet, Monitor and encourage PO intakes Expected Outcomes/Goals: Improved nutrition status, maintain wt. Plan discussed with: Patient, Other (JIMENA Culver) KYM HUDSON MD Nov 24, 2024 23:01
[2024-11-25] VITALS (20 sets, daily range): BP systolic 93–104; BP diastolic 53–66; PULSE 79–120; RESP 16–20; TEMP 98.1–98.8; O2SAT 95–100
[2024-11-25 05:06] LABS: Urine Bacteria MANY /hpf (None Seen); Urine Blood 3+ /uL (Negative); Urine Clarity Turbid (Clear); Urine Color Yellow (Yellow); Urine Protein, UAD 1+ (Negative); Urine Squamous Epithelial Cell MOD /hpf (<5); Urine Urobilinogen 6 mg/dL (Negative); Urine WBC 55 /HPF (0-3); Urine pH 6.5 (5.0-9.0)
[2024-11-25] MEDS: DOCUSATE SOD 100 MG CAP PO PRN (06:39)
[2024-11-25 08:20] LABS: Anion Gap 8 (5-15); Calcium 9.2 mg/dL (8.7-10.4)
[2024-11-25 08:21] LABS: Carbon Dioxide 33 mmol/L (20-31); Chloride 91 mmol/L (98-107); Potassium 3.1 mmol/L (3.5-5.1); Sodium 132 mmol/L (136-145)
[2024-11-25 08:26] LABS: BUN/Creatinine Ratio 19.2 (10.0-20.0); Basophils # (auto) 0 10 ^3/uL (0-0.2); Blood Urea Nitrogen 10 mg/dL (9-23); Eosinophils # (auto) 0 10 ^3/uL (0-0.8); Hemoglobin 8.1 g/dL (13.5-17.5); Monocytes # (auto) 1.3 10 ^3/uL (0-1.3); Nucleated Red Blood Cells % 0.1 %; Red Blood Cells 2.97 10^6/uL (4.5-5.90); White Blood Cell 11.1 10^3/uL (4.4-10.8)
[2024-11-25 08:29] LABS: Basophils % (auto) 0.2 % (0.0-2.0); Eosinophils % (auto) 0.2 % (0.0-7.0); Hematocrit 25.1 % (41.0-53.0); Lymphocytes # (auto) 1.1 10 ^3/uL (0.4-5.4); Lymphocytes % (auto) 9.8 % (10.0-50.0); Mean Corpuscular Hemoglobin 27.4 pg (28.0-32.0); Mean Corpuscular Hgb Conc. 32.3 g/dL (32.0-36.0); Mean Corpuscular Volume 84.7 fL (80.0-100.0); Neutrophils # (auto) 8.6 10 ^3/uL (1.6-8.6); Neutrophils % (auto) 77.8 % (37.0-80.0); Platelet Count (auto) 331 10^3/uL (140-450); Red Cell Distribution Width 17.7 % (11.8-14.3)
[2024-11-25 08:35] LABS: Glucose 107 mg/dL (74-106)
--- NOTE | 2024-11-25 11:34 | DVHPN2 ---
Progress Note - Dictate Date Seen: Nov 25, 2024 Medical Necessity Reason Pt with a Central, PICC or Fol: No Subjective Patient reports shortness of breath, but he feels much better comparatively. Sputum sample sent today. vital signs Vital Sign Date Time Temp Pulse Resp B/P (MAP) Pulse Ox O2 Delivery O2 Flow Rate FiO2 11/25/24 10:34 97 18 100 11/25/24 10:28 101/53 11/25/24 10:26 Nasal Cannula* 3 32 11/25/24 09:00 98.2 98.2 Total Intake and Output 11/24/24 11/24/24 11/25/24 15:00 23:00 07:00 Intake Total 2000 ml 1196 ml Output Total 3100 ml 2050 ml Balance -1100 ml -854 ml medications Current Medications Medications Dose Ordered Sig/Anthony Route Start Time Stop Time Status Last Admin Dose Admin Nitroglycerin 0.4 mg Q5MINP PRN SL 11/20/24 21:30 Morphine Sulfate 2 mg Q30M PRN IV 11/20/24 21:30 Acetaminophen 650 mg Q6HPRN PRN PO 11/20/24 21:30 Acetaminophen/ Hydrocodone Bitart 1 tab Q6HPRN PRN PO 11/20/24 21:30 Albuterol 2.5 mg Q4HR NEB 11/20/24 22:00 11/25/24 10:26 2.5 MG Ipratropium [place] 0.5 mg Q4HPRN NEB 11/21/24 02:00 11/25/24 10:26 0.5 MG Atorvastatin Calcium 40 mg DAILY PO 11/21/24 10:00 11/25/24 10:27 40 MG Aspirin 81 mg DAILY PO 11/21/24 10:00 11/24/24 10:35 81 MG Docusate Sodium 100 mg BID PRN PO 11/20/24 22:00 11/25/24 06:39 100 MG Apixaban 5 mg BID PO 11/21/24 10:00 11/24/24 21:22 5 MG Furosemide 40 mg BIDD IV 11/22/24 18:00 11/24/24 17:40 40 MG Metoprolol Tartrate 50 mg BID PO 11/22/24 22:00 11/25/24 10:28 50 MG Guaifenesin/ Dextromethorphan 10 ml Q4HP PRN PO 11/23/24 17:30 11/24/24 21:26 10 ML Vancomycin HCl 0 ml @ 0 mls/hr UD IV 11/23/24 22:15 Ceftriaxone Sodium/Dextrose 50 ml @ 50 mls/hr DAILY IV 11/24/24 10:00 11/25/24 10:26 50 MLS/HR Vancomycin HCl 250 ml @ 200 mls/hr Q12H IV 11/24/24 21:00 11/25/24 09:00 200 MLS/HR Sodium Chloride 1,000 ml @ 70 mls/hr [id number] IV 11/24/24 17:00 11/25/24 04:30 70 MLS/HR objective General Appearance: Alert, Oriented X3, Cooperative, moderate distress HEENT: Atraumatic, PERRLA, EOMI Respiratory: Other (Diminished breath sounds right lobe. ) Cardiovascular: chest wall: recent sternostomy. Normal S1, Normal S2 (AFib) Abdominal: Normal bowel sounds, Soft, No tenderness Extremities: No clubbing, No cyanosis, Normal pulses, Other (BLE edema) Skin: No rashes Neuro: Normal speech, Strength at 5/5 X4 ext Psych/Mental Status: Mental status NL, Mood NL laboratory and microbiology Laboratory Tests 11/25/24 06:57 Test 11/25/24 06:57 Range/Units Serum Glucose 107 H 74-106 mg/dL Assessment/Plan Patient is a 59-year-old male presents to the hospital with: retrosternal abscess with recent h/o sternotomy for cardiac valve replacement right pleural effusion: possible synpneumonic effusion Right lobe pneumonia acute hypoxic respiratory failure Sepsis AFIB HX CHF HX cardiac valve replacement Recommendations: Surgery consult was placed, who saw him yesterday, reports outside his scope. recommend transfer to [facility], preferably at the place where he had surgery. He needs I and D for now cover with broad spectrum antibiotic, Vancomycin and Zosyn He also need thoracocentesis with fluid analysis and cultures casemanagement order placed for [facility] Culture review: 11/21, MRSA screening: Negative 11/20, Blood culture preliminary showed no growth Imaging review: 11/22, Chest US showed Small right and trace left pleural effusion 11/21, Chest CT showed incidental finding of pleural -- pericardial effusion 11/20, Chest x-ray showed Increasing opacification right lung base when compared to the previous study. Stable moderate cardiomegaly. Effacement right hemidiaphragm Ct chest with contrast reviewed personally, has collection behind sternum/ large right pleural effusion Prognosis gaurded plan discussed with Dr Mcmanus Thank you for consult. Dietary Evaluation Review Comments: 1. Promote wound healing: Shreyas BID, MVI including Zinc 2. Follow current diet, Monitor and encourage PO intakes Expected Outcomes/Goals: Improved nutrition status, maintain wt. Plan discussed with: Other JYOTSNA JIMENEZ MD Nov 25, 2024 11:34
[2024-11-25] MEDS: PIPERACILLIN-TAZOB 3.375GM 100 ML IV SCH (15:14)
--- NOTE | 2024-11-25 16:51 | DVHDS2 ---
Discharge Summary Date of Admission Nov 20, 2024 at 21:26 Date of Discharge: Nov 25, 2024 Labs/Diagnostic Data: Laboratory Results Test 11/25/24 06:57 11/25/24 04:00 11/24/24 10:14 11/23/24 05:32 White Blood Count 11.1 10^3/uL (4.4-10.8) Red Blood Count 2.97 10^6/uL (4.5-5.90) Hemoglobin 8.1 g/dL (13.5-17.5) Hematocrit 25.1 % (41.0-53.0) Mean Corpuscular Volume 84.7 fL (80.0-100.0) Mean Corpuscular Hemoglobin 27.4 pg (28.0-32.0) Mean Corpuscular Hemoglobin Concent 32.3 g/dL (32.0-36.0) Red Cell Distribution Width 17.7 % (11.8-14.3) Platelet Count 331 10^3/uL (140-450) Mean Platelet Volume 7.8 fL (6.9-10.8) Neutrophils (%) (Auto) 77.8 % (37.0-80.0) Lymphocytes (%) (Auto) 9.8 % (10.0-50.0) Monocytes (%) (Auto) 12.0 % (0.0-12.0) Eosinophils (%) (Auto) 0.2 % (0.0-7.0) Basophils (%) (Auto) 0.2 % (0.0-2.0) Neutrophils # (Auto) 8.6 10 ^3/uL (1.6-8.6) Lymphocytes # (Auto) 1.1 10 ^3/uL (0.4-5.4) Monocytes # (Auto) 1.3 10 ^3/uL (0-1.3) Eosinophils # (Auto) 0 10 ^3/uL (0-0.8) Basophils # (Auto) 0 10 ^3/uL (0-0.2) Nucleated Red Blood Cells 0.1 % Sodium Level 132 mmol/L (136-145) Potassium Level 3.1 mmol/L (3.5-5.1) Chloride Level 91 mmol/L (98-107) Carbon Dioxide Level 33 mmol/L (20-31) Anion Gap 8 (5-15) Blood Urea Nitrogen 10 mg/dL (9-23) Creatinine 0.52 mg/dL (0.700-1.30) Glomerular Filtration Rate Calc 115 mL/min (>90) BUN/Creatinine Ratio 19.2 (10.0-20.0) Serum Glucose 107 mg/dL (74-106) Calcium Level 9.2 mg/dL (8.7-10.4) Urine Color Yellow (Yellow) Urine Clarity Turbid (Clear) Urine pH 6.5 (5.0-9.0) Urine Specific [place] 1.020 (1.001-1.035) Urine Protein 1+ (Negative) Urine Ketones Negative (Negative) Urine Blood 3+ /uL (Negative) Urine Nitrite Negative (Negative) Urine Bilirubin Negative (Negative) Urine Urobilinogen 6 mg/dL (Negative) Urine Leukocyte Esterase 3+ /uL (Negative) Urine RBC 69 /hpf (0 - 3) Urine Microscopic WBC 55 /HPF (0-3) Urine Squamous Epithelial Cells Mod /hpf (<5) Urine Bacteria Many /hpf (None Seen) Urine Glucose Normal mg/dL (Normal) Total Bilirubin 1.1 mg/dL (0.2-1.0) Aspartate Amino Transferase (AST) 60 U/L (13-40) Alanine Aminotransferase (ALT) 84 U/L (7-40) Alkaline Phosphatase 392 U/L (46-116) Total Protein 5.9 g/dL (5.7-8.2) Albumin 2.9 g/dL (3.2-4.8) Prothrombin Time 13.6 sec (9.3-11.8) Prothrombin Time INR 1.32 (0.9-1.15) Test 11/21/24 16:13 11/20/24 21:55 11/20/24 20:26 11/20/24 17:03 Blood Gas Specimen Type Arterial Blood Gas Sample Site Right radial Blood Gas Patient Temperature 37.0 Arterial Blood Date Drawn [id number] Arterial Blood pH 7.554 (7.350-7.450) Arterial Blood Partial Pressure CO2 32.6 mmHg (35.0-48.0) Arterial Blood Partial Pressure O2 41.2 mmHg (83.0-108.0) Arterial Blood HCO3 28.1 mmol/L (21.0-28.0) Arterial Blood Oxygen Saturation 79.9 % (94.0-98.0) Arterial Blood Base Excess 5.7 mmol/L (-2.0-3.0) Arterial Blood Oxyhemoglobin 78.5 % (94.0-98.0) Arterial Blood Carboxyhemoglobin 1.5 % (0.5-1.5) Arterial Blood Methemoglobin 0.3 % (0.0-1.5) Kumar Test Yes Blood Gas Total Hemoglobin 9.10 g/dL (13.5-17.5) Blood Gas Modality Room air FiO2 % 21.0 Blood Gas Critical Value Read Back Yes Blood Gas Notified Whom Dr. vani light Blood Gas Notified Time [id number] Blood Gas Notified By Lactic Acid Level 1.0 mmol/L (0.4-2.0) Troponin I High Sensitivity 36 ng/L (</=54) B-Type Natriuretic Peptide 252.30 pg/mL (0-100) Other Laboratory Tests 11/25/24 06:57 Brief Hx & Hospital Course: 59-year-old male with known history of aortic stenosis status post open heart surgery for aortic valve replacement at [facility] recently presented to the hospital with shortness breath and low oxygen s aturation at home found to have acute hypoxic respiratory failure secondary to multifocal pneumonia. Patient also has right-sided pleural effusion. Patient was treated with the IV antibiotics. Patient was found to have retrosternal mediastinal fluid collection highly suspicious for abscess infectious Disease recommended higher level of care. Today [place] accepted the patient. Patient is going to higher level of care for CT surgery for possibly retrosternal mediastinal fluid collection if need any surgery. Patient was explained regarding current plan of care at who understand verbalized understanding and agreeable to plan. Condition at Discharge: Stable Final Diagnosis/Problems List 59-year-old male with known history of aortic stenosis status post open heart surgery for aortic valve replacement at [facility] recently presented to the hospital with shortness breath and low oxygen saturation at home found to have 1. Acute hypoxic respiratory failure 2/2 to multifocal pneumonia 2. Multifocal pneumonia, rule out lung masses 3. Right-sided pleural effusion 4. Acute congestive heart failure exacerbation with likely systolic dysfunction 5. Retrosternal mediastinal fluid collection rule out abscess 6. Mediastinal lymphadenopathy 7. Aortic valve stenosis status post aortic valve replacement at [facility] -continue current management, IV diuretics, daily weig Discharge Disposition: Acute Care Facility SNF Discharge Will this Physician continue t: No Discharge Instruct/Medications Diet: Cardiac 2g Na,low cholest Activity: No Restrictions, As Tolerated Follow Up/Referral: Follow up at higher level of care Medications: Vancomycin and Zosyn. Discharge Statement: "Patient was advised to return to the ER or call 911 if any headaches, dizziness, shortness of breath, chest pain, abdominal pain, bleeding, fevers, or worsening of medical condition. Patient was counseled about treatment plan, medications, possible side effects, patientverbalized understanding. All questions were answered to the best of my ability. This discharge took greater then 30 minutes in planning, reviewing documentation, counseling the patient, and discussing with other team members." ASSESSMENT ASSESSMENT Assessment 59-year-old male with known history of aortic stenosis status post open heart surgery for aortic valve replacement at [facility] recently presented to the hospital with shortness breath and low oxygen saturation at home found to have 1. Acute hypoxic respiratory failure 2/2 to multifocal pneumonia 2. Multifocal pneumonia, rule out lung masses 3. Right-sided pleural effusion 4. Acute congestive heart failure exacerbation with likely systolic dysfunction 5. Retrosternal mediastinal fluid collection rule out abscess 6. Mediastinal lymphadenopathy 7. Aortic valve stenosis status post aortic valve replacement at [facility] -continue current management, IV diuretics, daily weig Date of Service: Nov 25, 2024 Billing Provider: MALLORY LIGHT MD Common Visit Codes: NOT BILLABLE MALLORY LIGHT MD Nov 25, 2024 16:51
--- NOTE | 2024-11-25 21:25 | DVHPN2 ---
Progress Note - Dictate Date Seen: Nov 25, 2024 Medical Necessity Reason Pt with a Central, PICC or Fol: No Subjective Patient seen and examined at bedside. Remains on supplemental oxygen Overnight events reviewed. vital signs Vital Sign Date Time Temp Pulse Resp B/P (MAP) Pulse Ox O2 Delivery O2 Flow Rate FiO2 11/25/24 20:56 112 101/59 11/25/24 19:38 18 100 11/25/24 19:32 Nasal Cannula 3.0 11/25/24 19:32 32 11/25/24 17:00 98.3 98.3 Total Intake and Output 11/24/24 11/24/24 11/25/24 15:00 23:00 07:00 Intake Total 2000 ml 1196 ml Output Total 3100 ml 2050 ml Balance -1100 ml -854 ml medications Current Medications Medications Dose Ordered Sig/Anthony Route Start Time Stop Time Status Last Admin Dose Admin Nitroglycerin 0.4 mg Q5MINP PRN SL 11/20/24 21:30 Morphine Sulfate 2 mg Q30M PRN IV 11/20/24 21:30 Acetaminophen 650 mg Q6HPRN PRN PO 11/20/24 21:30 Acetaminophen/ Hydrocodone Bitart 1 tab Q6HPRN PRN PO 11/20/24 21:30 Albuterol 2.5 mg Q4HR NEB 11/20/24 22:00 11/25/24 19:32 2.5 MG Ipratropium [place] 0.5 mg Q4HPRN NEB 11/21/24 02:00 11/25/24 19:32 0.5 MG Atorvastatin Calcium 40 mg DAILY PO 11/21/24 10:00 11/25/24 10:27 40 MG Aspirin 81 mg DAILY PO 11/21/24 10:00 11/24/24 10:35 81 MG Docusate Sodium 100 mg BID PRN PO 11/20/24 22:00 11/25/24 15:14 100 MG Apixaban 5 mg BID PO 11/21/24 10:00 11/25/24 20:54 5 MG Furosemide 40 mg BIDD IV 11/22/24 18:00 11/25/24 18:02 40 MG Metoprolol Tartrate 50 mg BID PO 11/22/24 22:00 11/25/24 20:56 50 MG Guaifenesin/ Dextromethorphan 10 ml Q4HP PRN PO 11/23/24 17:30 11/25/24 15:14 10 ML Vancomycin HCl 0 ml @ 0 mls/hr UD IV 11/23/24 22:15 Vancomycin HCl 250 ml @ 200 mls/hr Q12H IV 11/24/24 21:00 11/25/24 09:00 200 MLS/HR Sodium Chloride 1,000 ml @ 70 mls/hr [id number] IV 11/24/24 17:00 11/25/24 04:30 70 MLS/HR Piperacillin Sod/ Tazobactam Sod 100 ml @ 25 mls/hr Q6HR IV 11/25/24 12:00 11/25/24 17:59 25 MLS/HR objective Gen.: Patient lying in bed in no apparent distress. On supplemental oxygen. Head: Normocephalic, atraumatic. Eyes: EOMI/PERRLA. Ears: Normal hearing. Normal anatomy. Neck/trachea: Trachea midline, supple. Nose: Normal external anatomy. Mouth: Moist mucous membranes. Chest: Decreased air entry bilaterally. No wheezing or rhonchi. Cardiovascular: Positive S1, positive S2. Regular rate and rhythm. Abdomen: Positive bowel sounds in all 4 quadrants. Soft, non-tender, non- distended. : Deferred. Rectal: Deferred. Skin: Warm, dry. Intact. Extremities: 2+ radial pulses bilaterally. No lower extremity edema. Neuro: Awake, alert, oriented x3. No gross motor or sensory deficits. Cranial nerves II through XII intact. Gait not assessed. laboratory and microbiology Laboratory Tests 11/25/24 06:57 Test 11/25/24 06:57 Range/Units Serum Glucose 107 H 74-106 mg/dL Assessment/Plan Impression: Acute hypoxic respiratory failure Dependence on supplemental oxygen Multifocal pneumonia, rule out lung masses Right pleural effusion Atelectasis Acute CHF exacerbation with likely systolic dysfunction Mediastinal mass, rule out necrotic malignancy/abscess Mediastinal lymphadenopathy Pericardial effusion Aortic valve stenosis s/p aortic valve replacement Events: Remains on supplemental oxygen, 3 LPM NC Taper O2 as tolerated CT chest w/ contrast showed large right pleural effusion Limited chest ultrasound to assess if pleural effusion amenable for thoracentesis Continue bronchodilators Continue antibiotics Antitussive for cough Incentive spirometry ID recs appreciated Plan for right thoracentesis for evacuation of right pleural effusion Plan for bronchoscopy with BAL for cultures, possible brushings, possible biopsy. Eliquis BID Cardiology recommendations appreciated Wound care HLOC for CT surgery eval. Labs and imaging reviewed. Rest of plan as noted below. Plan: Supplemental oxygen Titrate to keep O2 sats above 92%. Continue bronchodilators. Antibiotics Incentive spirometry Eliquis BID Cardiology recommendations appreciated Monitor renal function. Monitor electrolytes. Supplement as necessary. Monitor ins and outs. DVT prophylaxis. Prognosis: Guarded given patient's multiple co-morbidities. Rest of plan per hospitalist and other consultants. Thank you, LOUIS Eduardo, for allowing me to participate in this patient's care. Further recommendations will depend on the patient's clinical course. Please do not hesitate to contact me if you have any questions or concerns. This medical document was created using an electronic medical record system with [employer] dictation system. Although these documentations are being carefully reviewed, there may still be some phonetic and typographical changes. The errors are purely typographical, due to imperfection on the software program, and do not reflect any compromise in the patient's medical care. Dietary Evaluation Review Comments: 1. Promote wound healing: Shreyas BID, MVI including Zinc 2. Follow current diet, Monitor and encourage PO intakes Expected Outcomes/Goals: Improved nutrition status, maintain wt. Plan discussed with: Patient, Other (JIMENA Culver) KYM HUDSON MD Nov 25, 2024 21:25
[2024-11-26 01:20] VITALS: BP 99/58; PULSE 79; RESP 18; O2SAT 100
== END 2024-11-26 01:07 | disposition short-term general hospital (02) | DRG 720 ==
LOC: ER 15:36 → OVERFLOW 21:26 → TELE-WESTW 11-21 04:24
PROVIDERS: ADMIT Hospitalist; ATTEND Internal Medicine
DX: A41.9 Sepsis, unspecified organism (principal); J96.01 Acute respiratory failure with hypoxia; I50.23 Acute on chronic systolic (congestive) heart failure; J85.3 Abscess of mediastinum; I31.39 Other pericardial effusion (noninflammatory); I11.0 Hypertensive heart disease with heart failure; J15.69 Pneumonia due to other Gram-negative bacteria; J15.9 Unspecified bacterial pneumonia; Z99.81 Dependence on supplemental oxygen; I35.0 Nonrheumatic aortic (valve) stenosis; I48.91 Unspecified atrial fibrillation; J98.11 Atelectasis; Z79.82 Long term (current) use of aspirin; Z79.899 Other long term (current) drug therapy; Z91.030 Bee allergy status; Z91.018 Allergy to other foods; Z79.01 Long term (current) use of anticoagulants; Z82.5 Family history of asthma and other chronic lower respiratory diseases; Z95.3 Presence of xenogenic heart valve
CPT/HCPCS: 36415; 36600; 71045; 71250; 71260; 76604; 80048; 80053; 81001; 82805; 83605; 83880; 84484; 85025; 85610; 86850; 86900; 86901; 87040; 87070; 87077; 87081; 87186; 87205; 93005; 93306; 94640; 96365; 96375; G0378; J0131; J2543